=== PATIENT | female | born 1960 | race Caucasian/White ===

== ENCOUNTER 2017-09-30 14:49 | Inpatient (IN) ==
[2017-09-30] MEDS ORDERED: Hydrocortisone Sodium Succ 100 MG/2 ML VIAL IVP ONE (14:54)
[2017-09-30] MEDS ORDERED: 0.9 % Sodium Chloride 1,000 ML IVC ONE ×3 (14:54→17:32)
--- NOTE | 2017-09-30 14:59 | Emergency Department Note ---
Disposition Clinical Impression: Acute adrenal crisis, History of [place]'s disease, Hyponatremia, Hyperkalemia , Leukocytosis, UTI (urinary tract infection) Disposition: Admitted As Inpatient Condition: Critical General Adult HPI - General Stated complaint: NVD Time Seen by Provider: 09/30/17 14:53 - Related Data Home Medications Medication Instructions Recorded Confirmed No Known Home Drugs 09/30/17 09/30/17 Allergies Allergy/AdvReac Type Severity Reaction Status Date / Time morphine AdvReac Rash Verified 09/30/17 17:53 Course Vital Signs Temperature 98.3 F 09/30/17 14:52 Pulse Rate 103 09/30/17 14:52 Respiratory Rate 18 09/30/17 14:52 Blood Pressure 82/52 09/30/17 14:52 O2 Sat by Pulse Oximetry 100 09/30/17 14:52 Temperature 97.6 F 10/04/17 04:38 Pulse Rate 86 10/04/17 04:38 Respiratory Rate 14 10/04/17 04:38 Blood Pressure 120/69 10/04/17 04:38 O2 Sat by Pulse Oximetry 98 10/04/17 04:38 Oxygen Delivery Oxygen Delivery Room Air Medical Decision Making - Lab Data Result diagrams: 10/04/17 03:47 10/04/17 03:47 Lab Results 09/30/17 09/30/17 09/30/17 Range/Units 15:00 15:18 16:02 WBC 19.1 H (4.3-11.1) K/mcL RBC 4.80 (3.82-4.97) M/mcL Hgb 13.6 (11.5-15.4) g/dL Hct 40.4 (35.3-44.9) % MCV 84.2 (83.0-100.0) fL MCH 28.3 (28.0-33.3) pg MCHC 33.7 (31.6-35.5) g/dL RDW 13.1 (11.5-14.5) % Plt Count 290 (140-400) K/mcL MPV 9.9 (9.4-12.4) fL Immature Gran % 0.6 (0-4) % Seg Neutrophils % 81.7 % Lymphocytes % 9.1 % Monocytes % 6.8 % Eosinophils % 1.4 % Basophils % 0.4 % Neutrophils # 15.6 H (1.6-8.9) K/mcL Lymphocytes # 1.7 (0.6-4.6) K/mcL Monocytes # 1.3 (0.0-1.3) K/mcL Eosinophils # 0.3 (0.0-0.6) K/mcL Basophils # 0.1 (0.0-0.2) K/mcL Sodium (136-145) mEq/L Potassium (3.5-4.5) mEq/L Chloride (98-109) mEq/L Carbon Dioxide (19-29) mEq/L BUN (7-20) mg/dL Creatinine (0.57-1.11) mg/dL Est GFR ( Amer) (> 60) Est GFR (Non-Af Amer) (> 60) BUN/Creatinine Ratio (6-26) Glucose (70-99) mg/dL POC Glucose 98 H (58-89) Calculated Osmolality (280-300) Lactic Acid (0.5-2.2) mmol/L Calcium (8.6-10.8) mg/dL Magnesium (1.6-2.6) mg/dL Total Bilirubin (0.2-1.2) mg/dL AST (5-34) Units/L ALT (0-55) Units/L Alkaline Phosphatase (38-126) Units/L Creatine Kinase (29-168) Units/L Troponin I (0-0.03) ng/mL Serum Total Protein (6.0-8.3) g/dL Albumin (3.5-5.0) g/dL Globulin (2.4-3.5) g/dL Albumin/Globulin Ratio (1.1-2.2) TSH (0.350-4.840) mcIU/mL ACTH (6-58) pg/mL Urine Color Dark Yellow (Yellow) Urine Clarity Turbid A (Clear) Urine pH 6.5 (5.0-8.0) pH Units Ur Specific [place] 1.016 (1.010-1.025) Urine Protein 100 H (Neg-Trace) mg/dL Urine Glucose (UA) Normal (Normal) mg/dL Urine Ketones Trace H (Negative) mg/dL Urine Blood Small H (Negative) Urine Nitrite Negative (Negative) Urine Bilirubin Small H (Negative) Urine Urobilinogen Normal (Normal) mg/dL Ur Leukocyte Esterase Large H (Negative) Urine Microscopic RBC 5-15 H (0-3) per hpf Urine Microscopic WBC TNTC H (0-3) per hpf Ur Squamous Epith Cells Many H (None-Few) per lpf Urine Bacteria Many H (None-Few) per hpf Hyaline Casts Test Not Performed Urine Yeast Test Not Performed 09/30/17 09/30/17 09/30/17 Range/Units 16:02 16:02 16:02 WBC (4.3-11.1) K/mcL RBC (3.82-4.97) M/mcL Hgb (11.5-15.4) g/dL Hct (35.3-44.9) % MCV (83.0-100.0) fL MCH (28.0-33.3) pg MCHC (31.6-35.5) g/dL RDW (11.5-14.5) % Plt Count (140-400) K/mcL MPV (9.4-12.4) fL Immature Gran % (0-4) % Seg Neutrophils % % Lymphocytes % % Monocytes % % Eosinophils % % Basophils % % Neutrophils # (1.6-8.9) K/mcL Lymphocytes # (0.6-4.6) K/mcL Monocytes # (0.0-1.3) K/mcL Eosinophils # (0.0-0.6) K/mcL Basophils # (0.0-0.2) K/mcL Sodium 122 L (136-145) mEq/L Potassium 4.8 H (3.5-4.5) mEq/L Chloride 91 L (98-109) mEq/L Carbon Dioxide 18 L (19-29) mEq/L BUN 31 H (7-20) mg/dL Creatinine 1.69 H (0.57-1.11) mg/dL Est GFR ( Amer) 38 L (> 60) Est GFR (Non-Af Amer) 31 L (> 60) BUN/Creatinine Ratio 18 (6-26) Glucose 80 (70-99) mg/dL POC Glucose (58-89) Calculated Osmolality 260 L (280-300) Lactic Acid 4.0 H* (0.5-2.2) mmol/L Calcium 9.7 (8.6-10.8) mg/dL Magnesium 1.7 (1.6-2.6) mg/dL Total Bilirubin 0.7 (0.2-1.2) mg/dL AST 21 (5-34) Units/L ALT 16 (0-55) Units/L Alkaline Phosphatase 68 (38-126) Units/L Creatine Kinase 335 H (29-168) Units/L Troponin I 0.01 (0-0.03) ng/mL Serum Total Protein 6.1 (6.0-8.3) g/dL Albumin 2.8 L (3.5-5.0) g/dL Globulin 3.3 (2.4-3.5) g/dL Albumin/Globulin Ratio 0.8 L (1.1-2.2) TSH 8.668 H (0.350-4.840) mcIU/mL ACTH (6-58) pg/mL Urine Color (Yellow) Urine Clarity (Clear) Urine pH (5.0-8.0) pH Units Ur Specific [place] (1.010-1.025) Urine Protein (Neg-Trace) mg/dL Urine Glucose (UA) (Normal) mg/dL Urine Ketones (Negative) mg/dL Urine Blood (Negative) Urine Nitrite (Negative) Urine Bilirubin (Negative) Urine Urobilinogen (Normal) mg/dL Ur Leukocyte Esterase (Negative) Urine Microscopic RBC (0-3) per hpf Urine Microscopic WBC (0-3) per hpf Ur Squamous Epith Cells (None-Few) per lpf Urine Bacteria (None-Few) per hpf Hyaline Casts Urine Yeast 09/30/17 Range/Units 16:02 WBC (4.3-11.1) K/mcL RBC (3.82-4.97) M/mcL Hgb (11.5-15.4) g/dL Hct (35.3-44.9) % MCV (83.0-100.0) fL MCH (28.0-33.3) pg MCHC (31.6-35.5) g/dL RDW (11.5-14.5) % Plt Count (140-400) K/mcL MPV (9.4-12.4) fL Immature Gran % (0-4) % Seg Neutrophils % % Lymphocytes % % Monocytes % % Eosinophils % % Basophils % % Neutrophils # (1.6-8.9) K/mcL Lymphocytes # (0.6-4.6) K/mcL Monocytes # (0.0-1.3) K/mcL Eosinophils # (0.0-0.6) K/mcL Basophils # (0.0-0.2) K/mcL Sodium (136-145) mEq/L Potassium (3.5-4.5) mEq/L Chloride (98-109) mEq/L Carbon Dioxide (19-29) mEq/L BUN (7-20) mg/dL Creatinine (0.57-1.11) mg/dL Est GFR ( Amer) (> 60) Est GFR (Non-Af Amer) (> 60) BUN/Creatinine Ratio (6-26) Glucose (70-99) mg/dL POC Glucose (58-89) Calculated Osmolality (280-300) Lactic Acid (0.5-2.2) mmol/L Calcium (8.6-10.8) mg/dL Magnesium (1.6-2.6) mg/dL Total Bilirubin (0.2-1.2) mg/dL AST (5-34) Units/L ALT (0-55) Units/L Alkaline Phosphatase (38-126) Units/L Creatine Kinase (29-168) Units/L Troponin I (0-0.03) ng/mL Serum Total Protein (6.0-8.3) g/dL Albumin (3.5-5.0) g/dL Globulin (2.4-3.5) g/dL Albumin/Globulin Ratio (1.1-2.2) TSH (0.350-4.840) mcIU/mL ACTH 975 H (6-58) pg/mL Urine Color (Yellow) Urine Clarity (Clear) Urine pH (5.0-8.0) pH Units Ur Specific [place] (1.010-1.025) Urine Protein (Neg-Trace) mg/dL Urine Glucose (UA) (Normal) mg/dL Urine Ketones (Negative) mg/dL Urine Blood (Negative) Urine Nitrite (Negative) Urine Bilirubin (Negative) Urine Urobilinogen (Normal) mg/dL Ur Leukocyte Esterase (Negative) Urine Microscopic RBC (0-3) per hpf Urine Microscopic WBC (0-3) per hpf Ur Squamous Epith Cells (None-Few) per lpf Urine Bacteria (None-Few) per hpf Hyaline Casts Urine Yeast Critical Care Time Critical Care Time: Yes Total Critical Care Time: 60 Attestation: The high probability of a clinically significant, sudden or life threatening deterioration of the [] system(s) required my full and direct attention, intervention and personal management. The aggregate critical care time was [] minutes. This time is in addition to time spent performing reported procedures but includes the following: [] Data Review and interpretation [] Patient assessment and monitoring of vital signs [] Documentation [] Medication orders and management Attestation Statement - Attestation Attestation: I examined this patient and my medical decision-making was reviewed with the Resident Physician. I agree with the documented findings, disposition and treatment plan as described except to the extent set forth below. [id number] time provided Patient seen upon her arrival to the treatment area. She thinks that she is subjectively in an addisonian crisis. She states she has not been taking her hydrocortisone for the past 8 months. She is disheveled and unkempt. IV hydrocortisone ordered. Workup initiated 16:16: Nursing staff unable to establish proper peripheral IVs. Triple-lumen central venous catheter placed by the resident physician under my supervision 20:05: His blood pressure is improving with IV fluids. She is now much more alert and awake. She is admitted to the ICU
[2017-09-30 15:08] LABS: Bilirubin,Urine Small (Negative); Blood,Urine Small (Negative); Clarity,Urine Turbid (Clear); Color,Urine Dark Yellow (Yellow); Glucose,Urine (UA) Normal (Normal); Ketones,Urine Trace mg/dL (Negative); Leukocyte Esterase,Urine Large (Negative); Nitrite,Urine Negative (Negative); PH,Urine 6.5 pH Units (5.0-8.0); Protein,Urine 100 mg/dL (Neg-Trace); Specific Gravity,Urine 1.016 (1.010-1.025); Urobilinogen,Urine Normal (Normal)
[2017-09-30 15:10] LABS: Bacteria,Urine Many per hpf (None-Few); Squamous Epithelial Cell,Urine Many per lpf (None-Few); WBC,Urine TNTC per hpf (0-3)
[2017-09-30 16:18] LABS: Basophils # 0.1 K/mcL (0.0-0.2); Basophils % 0.4 %; Eosinophils # 0.3 K/mcL (0.0-0.6); Eosinophils % 1.4 %; Hematocrit 40.4 % (35.3-44.9); Hemoglobin 13.6 g/dL (11.5-15.4); Immature Granulocytes % 0.6 % (0-4); Lymphocytes # 1.7 K/mcL (0.6-4.6); Lymphocytes % 9.1 %; Mean Corpuscular HGB Conc 33.7 g/dL (31.6-35.5); Mean Corpuscular Hemoglobin 28.3 pg (28.0-33.3); Mean Corpuscular Volume 84.2 fL (83.0-100.0); Mean Platelet Volume 9.9 fL (9.4-12.4); Monocytes # 1.3 K/mcL (0.0-1.3); Monocytes % 6.8 %; Neutrophils # 15.6 K/mcL (1.6-8.9); Platelet Count 290 K/mcL (140-400); Red Cell Distribution Width 13.1 % (11.5-14.5); Segmented Neutrophils % 81.7 %
[2017-09-30 16:34] LABS: Albumin 2.8 g/dL (3.5-5.0); Albumin/Globulin Ratio 0.8 (1.1-2.2); Bilirubin,Total 0.7 mg/dL (0.2-1.2); Calcium 9.7 mg/dL (8.6-10.8); Globulin 3.3 g/dL (2.4-3.5); Magnesium 1.7 mg/dL (1.6-2.6); Potassium 4.8 mEq/L (3.5-4.5); Total Protein 6.1 g/dL (6.0-8.3)
[2017-09-30 17:07] LABS: Thyroid Stimulating Hormone 8.668 mcIU/mL (0.350-4.840)
--- NOTE | 2017-09-30 22:15 | Emergency Department Note ---
Disposition Clinical Impression: Acute adrenal crisis, History of [place]'s disease, Hyponatremia, Hyperkalemia Leukocytosis Qualifiers: Leukocytosis type: unspecified Qualified Code(s): D72.829 - Elevated white blood cell count, unspecified UTI (urinary tract infection) Qualifiers: Urinary tract infection type: site unspecified Hematuria presence: without hematuria Qualified Code(s): N39.0 - Urinary tract infection, site not specified Disposition: Admitted As Inpatient Condition: Critical Time of Disposition: 18:00 Nausea/Vomiting/Diarrhea HPI - General Chief complaint: ED Nausea/Vomiting/Diarrhea Stated complaint: NVD Time Seen by Provider: 09/30/17 14:53 Source: patient Limitations: altered mental status Nursing Notes Reviewed: Yes Vital Signs Reviewed: Yes - History of Present Illness HPI Narrative: This 57-year-old female resents with nausea vomiting and incontinence and also mental status. Patient has a history of [place]'s disease and has been untreated for the past 8 months since losing her insurance and PCP. Patient's states that she has been getting weaker and weaker each day for the past 2 weeks. - Related Data Home Medications Medication Instructions Recorded Confirmed No Known Home Drugs 09/30/17 09/30/17 Allergies Allergy/AdvReac Type Severity Reaction Status Date / Time morphine AdvReac Rash Verified 09/30/17 17:53 All systems ED: reviewed and negative except as stated. Review of Systems: As Per HPI Constitutional: Reports: weakness Eyes: Denies: vision change ENT ED: Denies: congestion Cardiovascular: Denies: chest pain Respiratory: Denies: cough Gastrointestinal: Reports: abdominal pain, nausea, vomiting, diarrhea Genitourinary: Denies: urgency, dysuria, frequency Musculoskeletal: Denies: back pain Integumentary: Denies: rash Neurological: Reports: headache, weakness Endocrine: Reports: fatigue Past Medical History - Past Medical History Attestation: Yes The following information was validated with the patient. Source: patient Medical history: Reports: cancer Surgical history: Reports: orthopedic, other Psychiatric history: Reports: no psych history - Social History Smoking Status: Former smoker Smokeless Tobacco Status: No (vapor) Alcohol use: Reports: rarely Drug use: Reports: none Physical Exam Vital Signs Temperature 98.3 F 09/30/17 14:52 Pulse Rate 103 09/30/17 14:52 Respiratory Rate 18 09/30/17 14:52 Blood Pressure 82/52 09/30/17 14:52 O2 Sat by Pulse Oximetry 100 09/30/17 14:52 Temperature 98.6 F 09/30/17 21:00 Pulse Rate 118 09/30/17 21:00 Respiratory Rate 20 09/30/17 21:00 Blood Pressure 80/62 09/30/17 21:00 O2 Sat by Pulse Oximetry 98 09/30/17 21:00 Oxygen Delivery Oxygen Delivery Room Air 57-year-old female who is alert and oriented 3 buttocks is extremely weak and fatigued and looks toxic. Patient is hypotensive and tachycardic. - General Limitations: altered mental status General appearance: alert, in no apparent distress - Head Head exam: atraumatic, normocephalic, normal inspection - Eye Eye exam: Present: normal appearance, PERRL, EOMI - ENT ENT exam: normal exam, normal oropharynx, mucous membranes dry - Neck Neck exam: Present: normal inspection, full ROM, trachea midline. Absent: tenderness - Chest Chest inspection: Present: normal inspection, symmetric chest wall rise - Respiratory Respiratory exam: Present: normal lung sounds bilaterally. Absent: respiratory distress, wheezes - Cardiovascular Cardiovascular exam: Present: normal rhythm, tachycardia - Abdominal Exam Abdominal exam: Present: soft, tenderness. Absent: distention, guarding, rebound, rigidity - Extremities Exam Extremities exam: Present: tenderness. Absent: normal inspection, full ROM, normal capillary refill Course Vital Signs Temperature 98.3 F 09/30/17 14:52 Pulse Rate 103 09/30/17 14:52 Respiratory Rate 18 09/30/17 14:52 Blood Pressure 82/52 09/30/17 14:52 O2 Sat by Pulse Oximetry 100 09/30/17 14:52 Temperature 97.9 F 10/06/17 08:11 Pulse Rate 78 10/06/17 08:11 Respiratory Rate 16 10/06/17 08:11 Blood Pressure 95/56 10/06/17 08:11 O2 Sat by Pulse Oximetry 96 10/06/17 08:11 Oxygen Delivery Oxygen Delivery Room Air Procedures - Central Line Placement Left IJ Central Line Inserted*: Yes Central Line Catheter Replacement*: Yes Central Line Insertion: emergent Consent Obtained: verbal consent, written consent Procedural Pause: verify patient name and date of , timeout performed per policy, carl and assess the site, assemble equipment and verify supplies, perform hand hygiene Patient Placed on Monitor/Pulse Ox: Yes During the Procedure: clinician is wearing sterile gloves, cap, mask,& gown during insertion, sterile field and sterile technique are maintained, patient's face is covered with drape or mask and wearing a cap, everyone in room is wearing a mask Central Line Prep: Chlorhexidine scrub, sterile drapes applied Prep the Procedure Site: apply chloraprep to the skin using a back and forth scrubbing motion, apply chloraprep for 30 seconds (upper body), 1-2 min ( femoral sites), allow prep to dry, drape the patient with a full body drape Local Anesthetic: lidocaine 1% Amount of anesthesia used (mL): 10 Ultrasound Used for Placement: Yes Central Line Lumen Inserted: triple Post Procedure: sutured in place, good blood return, all ports aspirated, flushed, capped, sterile dressing applied, guide wire removed and visualized Post Procedure X-Ray: tip of catheter in good position, no pneumothorax seen Patient Tolerated Procedure: well, no complications Complications: none Nausea/Vomiting/Diarrhea - [facility] Narrative Medical decision making narrative: Adrenal crisis secondary to [place]'s disease with medication noncompliance. Patient's labs show elevated white count, TSH elevated, hyperkalemia at 4.8, hyponatremia 122, acute kidney injury, UTI. Patient received 3 L IV normal saline. First 2 L did not budge patient's blood pressure. Patient received 100 mg of hydrocortisone along with a third liter which brought patient's blood pressure up to 110/80. Patient received central line and left IJ. Other sites were impossible to cannulate. Patient tolerated procedure well. Post chest x- ray was taken and showed no pneumothorax and proper placement of central line in the left IJ. Reexamination the patient patient looks completely perked up a lot more alert. And is now able to ask questions. Patient currently does not look toxic any longer. Patient accepts admission for further workup evaluation and treatment. Patient has been accepted for admission to the ICU. - Lab Data Lab results reviewed: Yes I reviewed the patient's lab results. Lab results narrative: Short CBC 09/30/17 Range/Units 16:02 WBC 19.1 H (4.3-11.1) K/mcL Hgb 13.6 (11.5-15.4) g/dL Hct 40.4 (35.3-44.9) % Plt Count 290 (140-400) K/mcL Neutrophils # 15.6 H (1.6-8.9) K/mcL BMP 09/30/17 Range/Units 16:02 Sodium 122 L (136-145) mEq/L Potassium 4.8 H (3.5-4.5) mEq/L Chloride 91 L (98-109) mEq/L Carbon Dioxide 18 L (19-29) mEq/L BUN 31 H (7-20) mg/dL Creatinine 1.69 H (0.57-1.11) mg/dL Glucose 80 (70-99) mg/dL Calcium 9.7 (8.6-10.8) mg/dL Cardiac Enzymes 09/30/17 Range/Units 16:02 Troponin I 0.01 (0-0.03) ng/mL Liver Function 09/30/17 Range/Units 16:02 Total Bilirubin 0.7 (0.2-1.2) mg/dL AST 21 (5-34) Units/L ALT 16 (0-55) Units/L Alkaline Phosphatase 68 (38-126) Units/L Albumin 2.8 L (3.5-5.0) g/dL Urine 09/30/17 Range/Units 15:00 Urine Color Dark Yellow (Yellow) Urine Clarity Turbid A (Clear) Urine pH 6.5 (5.0-8.0) pH Units Ur Specific [place] 1.016 (1.010-1.025) Urine Protein 100 H (Neg-Trace) mg/dL Urine Glucose (UA) Normal (Normal) mg/dL Result diagrams: 10/06/17 03:27 10/06/17 03:27 Lab Results 09/30/17 09/30/17 09/30/17 Range/Units 15:00 15:18 16:02 WBC 19.1 H (4.3-11.1) K/mcL RBC 4.80 (3.82-4.97) M/mcL Hgb 13.6 (11.5-15.4) g/dL Hct 40.4 (35.3-44.9) % MCV 84.2 (83.0-100.0) fL MCH 28.3 (28.0-33.3) pg MCHC 33.7 (31.6-35.5) g/dL RDW 13.1 (11.5-14.5) % Plt Count 290 (140-400) K/mcL MPV 9.9 (9.4-12.4) fL Immature Gran % 0.6 (0-4) % Seg Neutrophils % 81.7 % Lymphocytes % 9.1 % Monocytes % 6.8 % Eosinophils % 1.4 % Basophils % 0.4 % Neutrophils # 15.6 H (1.6-8.9) K/mcL Lymphocytes # 1.7 (0.6-4.6) K/mcL Monocytes # 1.3 (0.0-1.3) K/mcL Eosinophils # 0.3 (0.0-0.6) K/mcL Basophils # 0.1 (0.0-0.2) K/mcL Sodium (136-145) mEq/L Potassium (3.5-4.5) mEq/L Chloride (98-109) mEq/L Carbon Dioxide (19-29) mEq/L BUN (7-20) mg/dL Creatinine (0.57-1.11) mg/dL Est GFR ( Amer) (> 60) Est GFR (Non-Af Amer) (> 60) BUN/Creatinine Ratio (6-26) Glucose (70-99) mg/dL POC Glucose 98 H (58-89) Calculated Osmolality (280-300) Lactic Acid (0.5-2.2) mmol/L Calcium (8.6-10.8) mg/dL Magnesium (1.6-2.6) mg/dL Total Bilirubin (0.2-1.2) mg/dL AST (5-34) Units/L ALT (0-55) Units/L Alkaline Phosphatase (38-126) Units/L Creatine Kinase (29-168) Units/L Troponin I (0-0.03) ng/mL Serum Total Protein (6.0-8.3) g/dL Albumin (3.5-5.0) g/dL Globulin (2.4-3.5) g/dL Albumin/Globulin Ratio (1.1-2.2) Renin Activity ng/mL/hr TSH (0.350-4.840) mcIU/mL ACTH (6-58) pg/mL Urine Color Dark Yellow (Yellow) Urine Clarity Turbid A (Clear) Urine pH 6.5 (5.0-8.0) pH Units Ur Specific [place] 1.016 (1.010-1.025) Urine Protein 100 H (Neg-Trace) mg/dL Urine Glucose (UA) Normal (Normal) mg/dL Urine Ketones Trace H (Negative) mg/dL Urine Blood Small H (Negative) Urine Nitrite Negative (Negative) Urine Bilirubin Small H (Negative) Urine Urobilinogen Normal (Normal) mg/dL Ur Leukocyte Esterase Large H (Negative) Urine Microscopic RBC 5-15 H (0-3) per hpf Urine Microscopic WBC TNTC H (0-3) per hpf Ur Squamous Epith Cells Many H (None-Few) per lpf Urine Bacteria Many H (None-Few) per hpf Hyaline Casts Test Not Performed Urine Yeast Test Not Performed 09/30/17 09/30/17 09/30/17 Range/Units 16:02 16:02 16:02 WBC (4.3-11.1) K/mcL RBC (3.82-4.97) M/mcL Hgb (11.5-15.4) g/dL Hct (35.3-44.9) % MCV (83.0-100.0) fL MCH (28.0-33.3) pg MCHC (31.6-35.5) g/dL RDW (11.5-14.5) % Plt Count (140-400) K/mcL MPV (9.4-12.4) fL Immature Gran % (0-4) % Seg Neutrophils % % Lymphocytes % % Monocytes % % Eosinophils % % Basophils % % Neutrophils # (1.6-8.9) K/mcL Lymphocytes # (0.6-4.6) K/mcL Monocytes # (0.0-1.3) K/mcL Eosinophils # (0.0-0.6) K/mcL Basophils # (0.0-0.2) K/mcL Sodium 122 L (136-145) mEq/L Potassium 4.8 H (3.5-4.5) mEq/L Chloride 91 L (98-109) mEq/L Carbon Dioxide 18 L (19-29) mEq/L BUN 31 H (7-20) mg/dL Creatinine 1.69 H (0.57-1.11) mg/dL Est GFR ( Amer) 38 L (> 60) Est GFR (Non-Af Amer) 31 L (> 60) BUN/Creatinine Ratio 18 (6-26) Glucose 80 (70-99) mg/dL POC Glucose (58-89) Calculated Osmolality 260 L (280-300) Lactic Acid 4.0 H* (0.5-2.2) mmol/L Calcium 9.7 (8.6-10.8) mg/dL Magnesium 1.7 (1.6-2.6) mg/dL Total Bilirubin 0.7 (0.2-1.2) mg/dL AST 21 (5-34) Units/L ALT 16 (0-55) Units/L Alkaline Phosphatase 68 (38-126) Units/L Creatine Kinase 335 H (29-168) Units/L Troponin I 0.01 (0-0.03) ng/mL Serum Total Protein 6.1 (6.0-8.3) g/dL Albumin 2.8 L (3.5-5.0) g/dL Globulin 3.3 (2.4-3.5) g/dL Albumin/Globulin Ratio 0.8 L (1.1-2.2) Renin Activity ng/mL/hr TSH 8.668 H (0.350-4.840) mcIU/mL ACTH (6-58) pg/mL Urine Color (Yellow) Urine Clarity (Clear) Urine pH (5.0-8.0) pH Units Ur Specific [place] (1.010-1.025) Urine Protein (Neg-Trace) mg/dL Urine Glucose (UA) (Normal) mg/dL Urine Ketones (Negative) mg/dL Urine Blood (Negative) Urine Nitrite (Negative) Urine Bilirubin (Negative) Urine Urobilinogen (Normal) mg/dL Ur Leukocyte Esterase (Negative) Urine Microscopic RBC (0-3) per hpf Urine Microscopic WBC (0-3) per hpf Ur Squamous Epith Cells (None-Few) per lpf Urine Bacteria (None-Few) per hpf Hyaline Casts Urine Yeast 09/30/17 Range/Units 16:02 WBC (4.3-11.1) K/mcL RBC (3.82-4.97) M/mcL Hgb (11.5-15.4) g/dL Hct (35.3-44.9) % MCV (83.0-100.0) fL MCH (28.0-33.3) pg MCHC (31.6-35.5) g/dL RDW (11.5-14.5) % Plt Count (140-400) K/mcL MPV (9.4-12.4) fL Immature Gran % (0-4) % Seg Neutrophils % % Lymphocytes % % Monocytes % % Eosinophils % % Basophils % % Neutrophils # (1.6-8.9) K/mcL Lymphocytes # (0.6-4.6) K/mcL Monocytes # (0.0-1.3) K/mcL Eosinophils # (0.0-0.6) K/mcL Basophils # (0.0-0.2) K/mcL Sodium (136-145) mEq/L Potassium (3.5-4.5) mEq/L Chloride (98-109) mEq/L Carbon Dioxide (19-29) mEq/L BUN (7-20) mg/dL Creatinine (0.57-1.11) mg/dL Est GFR ( Amer) (> 60) Est GFR (Non-Af Amer) (> 60) BUN/Creatinine Ratio (6-26) Glucose (70-99) mg/dL POC Glucose (58-89) Calculated Osmolality (280-300) Lactic Acid (0.5-2.2) mmol/L Calcium (8.6-10.8) mg/dL Magnesium (1.6-2.6) mg/dL Total Bilirubin (0.2-1.2) mg/dL AST (5-34) Units/L ALT (0-55) Units/L Alkaline Phosphatase (38-126) Units/L Creatine Kinase (29-168) Units/L Troponin I (0-0.03) ng/mL Serum Total Protein (6.0-8.3) g/dL Albumin (3.5-5.0) g/dL Globulin (2.4-3.5) g/dL Albumin/Globulin Ratio (1.1-2.2) Renin Activity 191.5 ng/mL/hr TSH (0.350-4.840) mcIU/mL ACTH 975 H (6-58) pg/mL Urine Color (Yellow) Urine Clarity (Clear) Urine pH (5.0-8.0) pH Units Ur Specific [place] (1.010-1.025) Urine Protein (Neg-Trace) mg/dL Urine Glucose (UA) (Normal) mg/dL Urine Ketones (Negative) mg/dL Urine Blood (Negative) Urine Nitrite (Negative) Urine Bilirubin (Negative) Urine Urobilinogen (Normal) mg/dL Ur Leukocyte Esterase (Negative) Urine Microscopic RBC (0-3) per hpf Urine Microscopic WBC (0-3) per hpf Ur Squamous Epith Cells (None-Few) per lpf Urine Bacteria (None-Few) per hpf Hyaline Casts Urine Yeast - Radiology Data Radiology results reviewed: Yes I reviewed the patient's radiology results. Chest X-Ray 09/30/17 14:53 IMPRESSION: No acute findings. Left IJ catheter with tip projecting the region of the mid to lower SVC. D/ / Monae Araiza MD / Monae Araiza MD Interpreting Provider: Monae Araiza MD
[2017-09-30] MEDS ORDERED: Ondansetron ODT 4 MG TAB.RAPDIS SL PRN (22:37)
[2017-09-30] MEDS ORDERED: Naloxone 0.4 MG/ML INJ IVP PRN (22:37)
[2017-09-30] MEDS ORDERED: Temazepam 15 MG CAPSULE PO PRN (22:44)
--- NOTE | 2017-10-01 00:03 | Internal Med History&Physical ---
<Vera Davies - Last Filed: 09/30/17 23:46> Date of Encounter: 10/01/17 Time of Encounter: 22:00 Assessment and Plan (1) Sepsis Current visit: Yes Status: Acute (2) UTI (urinary tract infection) Current visit: Yes Status: Acute Qualifiers: Urinary tract infection type: site unspecified Hematuria presence: with hematuria Qualified Code(s): N39.0 - Urinary tract infection, site not specified; R31.9 - Hematuria, unspecified; R31.9 - Hematuria, unspecified (3) Acute adrenal crisis Current visit: Yes Status: Acute (4) Bilateral knee pain Current visit: Yes Status: Acute (5) Hyponatremia Current visit: Yes Status: Acute (6) History of Alden's disease Current visit: Yes Status: Acute (7) DVT prophylaxis Current visit: Yes Status: Acute Internal Medicine - H&P: HPI Chief complaint: bilateral knee pain Admitted From: Emergency Dept Plans for Post Hospital Care: Transfer Inp Rehab Fac History of present illness: Ms. Mendoza is a 57 year old female with past medical history of Martin's disease and Althea's who presented to the ED complaining of bilateral knee pain. She stated that she has been immobile for the past 3 months. 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 She stated that Past Med Surg Social Fam HX - Past Medical History Medical history: cancer Psychiatric history: no psych history - Past Surgical History Surgical History: orthopedic, other - Social History Smoking Status: Former smoker Smokeless Tobacco Status: No (vapor) Alcohol use: rarely Drug use: none Internal Medicine - H&P: Meds No Known Home Drugs 09/30/17 [History] 3 Allergy/AdvReac Type Severity Reaction Status Date / Time morphine AdvReac Rash Verified 09/30/17 17:53 All Systems PM: A 10-system review of systems was performed and is negative for pertinent findings except as documented above in the HPI. - Constitutional Constitutional: no chills, no fever(s) - EENT Eyes: no change in vision - Cardiovascular Cardiovascular ROS IM: no chest pain, no palpitations, no syncope - Respiratory Respiratory: no cough, no dyspnea, no wheezing - Gastrointestinal Gastrointestinal: nausea, vomiting, no abdominal pain, no cramping, no diarrhea , no hematochezia - Genitourinary Genitourinary: no dysuria, no hematuria - Constitutional Vitals: Temp Pulse Resp BP Pulse Ox 98.6 F 105 16 87/50 98 09/30/17 21:00 09/30/17 22:00 09/30/17 22:00 09/30/17 22:00 09/30/17 22:00 General appearance: Present: A&O X 3, no acute distress - Head Head exam: Present: atraumatic, normocephalic - Eye Eye exam: Present: conjunctival injection - ENT ENT exam: Present: mucous membranes dry - Neck Neck exam general surgery: Present: supple. Absent: tenderness - Respiratory Respiratory exam: Present: CTAB. Absent: rales, wheezes - Cardiovascular Cardiovascular exam: Present: RRR, +S1, +S2. Absent: clicks - GI/Abdominal GI/Abdominal exam: Present: normal bowel sounds, soft. Absent: tenderness - Extremities Exam Extremities exam: Absent: calf tenderness, full ROM, joint swelling - Expanded Lower Extremities Exam Lower Leg exam: Absent: full ROM, swelling - Psychiatric Psychiatric exam: Present: normal affect, normal mood - Skin Skin exam: Present: erythema (on buttocks. left popliteal ), excoriation ( popliteal region of left leg) Internal Med - H&P Results - Labs CBC & Chem 7: 10/01/17 02:50 10/01/17 02:50 - Impressions ITS Impressions Knee X-Ray 09/30/17 22:42 IMPRESSION: No acute osseous abnormality of the bilateral knees. Osteopenia. Evaluation is limited by apparent flexion contractures bilaterally. D/ / Vj Abarca MD / Vj Abarca MD Interpreting Provider: Vj Abarca MD <Megha Parson - Last Filed: 10/01/17 04:55> Date of Encounter: 09/30/17 Internal Medicine - H&P: HPI History of present illness: Ms. Mendoza is a 57 year old female All Systems PM: A 10-system review of systems was performed and is negative for pertinent findings except as documented above in the HPI. - Constitutional Vitals: Temp Pulse Resp BP Pulse Ox 98.6 F 98 10 90/61 96 09/30/17 21:00 10/01/17 04:00 10/01/17 04:00 10/01/17 04:00 10/01/17 04:00 Internal Med - H&P Results - Labs CBC & Chem 7: 10/01/17 02:50 10/01/17 02:50 Labs: Short CBC 10/01/17 Range/Units 02:50 WBC 20.9 H (4.3-11.1) K/mcL Hgb 11.4 L D (11.5-15.4) g/dL Hct 33.3 L (35.3-44.9) % Plt Count 278 (140-400) K/mcL Neutrophils # 19.3 H (1.6-8.9) K/mcL BMP 10/01/17 02:50 Sodium 131 L D Potassium 4.2 Chloride 105 Carbon Dioxide 16 L BUN 18 D Creatinine 0.65 D Glucose 99 Calcium 8.4 L - Impressions ITS Impressions Knee X-Ray 09/30/17 22:42 IMPRESSION: No acute osseous abnormality of the bilateral knees. Osteopenia. Evaluation is limited by apparent flexion contractures bilaterally. D/ / Vj Abarca MD / Vj Abarca MD Interpreting Provider: Vj Abarca MD - Attending Attestation please see my dictated note
[2017-10-01] MEDS: cefTRIAXone 1,000 MG in Water for inj. (sterile) 10 ML IVP SCH ×2 (00:23→08:43)
[2017-10-01] MEDS: 0.9 % Sodium Chloride 1,000 ML IVC SCH ×2 (00:26→04:37)
[2017-10-01] MEDS: Nystatin Cream 15 GM TUBE TP SCH ×4 (00:27→20:41)
[2017-10-01] MEDS ORDERED: Acetaminophen 325 MG TABLET PO PRN (02:58)
--- NOTE | 2017-10-01 03:04 | Event Note ---
Date of Encounter: 10/01/17 Time of Encounter: 03:00 Patient was seen along with the resident and examined. 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 Several months back she was fired from the practice and since then she has not been taking her medication. The main reason she came in today is because of her bilateral knee pain which is incapacitating her. Her knees are not flexed position and she is very resistant to further extend those. I noted that she has some fungal infection and ulceration in the popliteal area of her left leg lower extremities indicating that to probably this is going on for a longer period of time. At this time we are requesting records from her physician in [facility] but in the meantime we have noticed that she has UTI sepsis and start her on IV Rocephin and IV fluids. Random cortisol will be obtained after which she can be started on IV hydrocortisone. Her TSH is slightly elevated and she can be given a low-dose of levothyroxine. I will hold further workup until we review her records to see if there is any need to do any further testing. Knee x-rays and orthopedic consultation will also be obtained. Overall patient seems quite emotional and upset and might need a psych consult.
[2017-10-01 03:08] LABS: Basophils % 0.1 %; Hematocrit 33.3 % (35.3-44.9); Immature Granulocytes % 0.5 % (0-4); Lymphocytes # 0.6 K/mcL (0.6-4.6); Lymphocytes % 2.8 %; Mean Corpuscular HGB Conc 34.2 g/dL (31.6-35.5); Mean Corpuscular Hemoglobin 28.2 pg (28.0-33.3); Mean Corpuscular Volume 82.4 fL (83.0-100.0); Mean Platelet Volume 9.8 fL (9.4-12.4); Monocytes # 0.9 K/mcL (0.0-1.3); Monocytes % 4.1 %; Neutrophils # 19.3 K/mcL (1.6-8.9); Platelet Count 278 K/mcL (140-400); Red Blood Count 4.04 M/mcL (3.82-4.97); Red Cell Distribution Width 13.1 % (11.5-14.5); Segmented Neutrophils % 92.5 %
[2017-10-01 03:15] LABS: Hemoglobin 11.4 g/dL (11.5-15.4)
[2017-10-01 03:17] LABS: BUN/Creatinine Ratio 28 (6-26); Calcium 8.4 mg/dL (8.6-10.8); Carbon Dioxide 16 mEq/L (19-29); Chloride 105 mEq/L (98-109); Glucose 99 mg/dL (70-99); Osmolality,Calculated 274 (280-300); Potassium 4.2 mEq/L (3.5-4.5); eGFR For African Americans > 60 (> 60); eGFR For Non-African Americans > 60 (> 60)
[2017-10-01 03:23] LABS: Blood Urea Nitrogen 18 mg/dL (7-20); Sodium 131 mEq/L (136-145)
[2017-10-01] MEDS ORDERED: *HR* Heparin 5,000 UNIT/ML VIAL SQ SCH (06:00)
[2017-10-01] MEDS: Levothyroxine 25 MCG TABLET PO SCH (06:03)
[2017-10-01] MEDS: Hydrocortisone Sodium Succ 100 MG/2 ML VIAL IVP SCH ×2 (08:43→15:42)
[2017-10-01] MEDS: Norepinephrine 4 MG in D5% in Water 250 ML IVC SCH (08:47)
--- NOTE | 2017-10-01 08:54 | Pulmonology Consult Note ---
<Jerzy Peralta - Last Filed: 10/01/17 10:38> Date of Encounter: 10/01/17 Time of Encounter: 08:00 Assessment and Plan (1) Severe sepsis Current Visit: Yes Status: Acute - 2 SIRS criteria (tachycardia and leukocytosis) with lactic acid 4.0 on admission. - Likely secondary to UTI. - Blood cultures and urine culture pending. - Improves as leukocytosis decreases and lactic acid normalized (0.9 on repeat). - Continue IV ceftriaxone (since 10/01). - Hold NS for now given the [id number] correction for hyponatremia. Will consider using IV fluid like free water/D5 instead. - Start Levophed for pressure support and the goal is have MAP 65 or higher. - Continue close monitoring in ICU. (2) Acute adrenal crisis Current Visit: Yes Status: Acute - Known history of adrenal insufficiency and being off from steroid for 8 months per patient. - Likely contributes to patient's persistent hypotension along with hyponatremia and hyperkalemia. - Continue IV hydrocortisone. 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 - Continue to monitor closely in ICU. (3) Hypotension Current Visit: Yes Status: Acute - Persistent hypotension even after 4L of NS. - Likely secondary to adrenal crisis. Severe sepsis on admission may also contribute in some degree. - Will obtain echocardiogram to evaluate for heart function. - Continue IV hydrocortisone. - Start Levophed for pressure support and the goal is have MAP 65 or higher. - Continue close monitoring. Qualifiers: Hypotension type: other hypotension type Qualified Code(s): I95.89 - Other hypotension (4) UTI (urinary tract infection) Current Visit: Yes Status: Acute - Reported worsening urinary incontinence with large amount of leukocyte esterase and many bacteria on UA. - Urine culture pending. - Continue IV ceftriaxone (since 10/01). Qualifiers: Urinary tract infection type: site unspecified Hematuria presence: without hematuria Qualified Code(s): N39.0 - Urinary tract infection, site not specified (5) Hypothyroidism (acquired) Current Visit: Yes Status: Chronic - History of Althea's thyroiditis in the past - Patient reports being off from Synthroid for 8 months. - Elevated TSH 8.668 on admission with free T4 1.34 - Continue low dose Synthroid. (6) Hyponatremia Current Visit: Yes Status: Acute - Na 122 on admission. - Likely related to patient's adrenal insufficiency/crisis. - Improves as Na 131 this morning, which is corrected faster than anticipated. - Will discontinue normal saline and repeat Na again. Consider adding free water or D5 to lower Na if needed. - Continue close monitoring. (7) Hyperkalemia Current Visit: Yes Status: Acute - K 4.8 on admission. - Likely related to patient's adrenal insufficiency/crisis. - Improves as K 4.2 today. - Continue to monitor closely. (8) Bilateral knee pain Current Visit: Yes Status: Chronic - Per patient, bilateral knee pain and unable to extend the knee for 6 months resulting in inability to ambulate for past 3 months. - Bilateral knee X-ray found osteopenia but no acute osseous abnormality of the bilateral knees. - Orthopedic surgery had been consulted by admitting physician. Appreciate orthopedic input. Qualifiers: Chronicity: chronic Qualified Code(s): M25.561 - Pain in right knee; M25.562 - Pain in left knee; M25.562 - Pain in left knee; G89.29 - Other chronic pain; G89.29 - Other chronic pain (9) DVT prophylaxis Current Visit: Yes Status: Acute - Continue SQ heparin. GI prophylaxis: Pepcid. History of Present Illness Consult date: 10/01/17 Requesting physician: Cheko Max Reason for consult: other (Persistent hypotension) Chief complaint: Bilateral knee pain History of present illness: Ms. Mendoza is a 57 yo female with PMH of adrenal insufficiency and Althea thyroiditis who presented to to [facility] ED for bilateral knee pain. Patient was noted to be tachycardic and hypotensive along with WBC 20.9 and lactic acid 4.0. Patient was admitted to ICU on 09/30/17 for severe sepsis likely secondary to UTI. Patient was started on IV ceftriaxone. Patient also received 4L of NS along with IV hydrocortisone 100 mg but continued to be hypotensive. Critical care was consulted for further management including pressure support. Patient was seen and examined this morning. Patient's main complaint is her bilateral knee pain which had been going on for 6 months and made her unable to ambulate for 3 months. Patient states she has been lying on the couch all the time and did notice some erythema at her heel and butt. Patient also has chronic urinary incontinence but does notice worsening in past few days along with some nausea and vomiting. Patient denies fever, chills, dyspnea, cough, chest pain, abdominal pain, diarrhea, constipation, hematochezia, melena, hematuria, dysuria, easily bleeding. Patient reports being off from steroid and Synthroid for 8 months. Past Med Surg Social Fam HX - Past Medical History Medical history: cancer (bone cancer of left humorous), thyroid disease ( Althea), other (Adrenal insufficiency) Psychiatric history: no psych history - Past Surgical History Surgical History: orthopedic, other (left humorous) - Social History Smoking Status: Former smoker Smokeless Tobacco Status: No (vapor) Alcohol use: rarely Drug use: none - Family History Father Hx Family Cardiac Disorders: Yes ([place]) Mother Hx Family Cancer: Yes (breast and lung cancers) Brother Hx Family Cardiac Disorders: Yes ([place]) Medications and Allergies No Known Home Drugs 09/30/17 [History] 3 Allergy/AdvReac Type Severity Reaction Status Date / Time morphine AdvReac Rash Verified 09/30/17 17:53 All Systems: A 10-system review of systems was performed and is negative for pertinent findings except as documented above in the HPI. Physical Examination Vital Signs: Vital Signs, Last 4 Hours Temp Pulse Resp BP Pulse Ox 10/01/17 07:22 98.5 F 10/01/17 06:00 100 14 77/54 98 10/01/17 05:06 98.5 F 10/01/17 05:00 98.5 F 100 14 101/58 98 General appearance: no acute distress, alert Eyes: nonicteric ENT: oropharynx dry Neck: supple Effort: normal Inspection: normal Auscultation: bilateral: clear Cardiovascular: regular rate and rhythm Gastrointestinal: normoactive bowel sounds, soft, non-tender Integumentary: erythema (butt and heel) Extremities: no cyanosis, no edema Musculoskeletal: other (Bilateral knee in flex position. ) normal mental status, non-focal exam Results - Laboratory Findings CBC and BMP: 10/01/17 02:50 10/01/17 02:50 Abnormal lab findings: Abnormal lab results WBC 20.9 K/mcL (4.3-11.1) H 10/01/17 02:50 Hgb 11.4 g/dL (11.5-15.4) L D 10/01/17 02:50 Hct 33.3 % (35.3-44.9) L 10/01/17 02:50 MCV 82.4 fL (83.0-100.0) L 10/01/17 02:50 Neutrophils # 19.3 K/mcL (1.6-8.9) H 10/01/17 02:50 ESR 39 mm/hr (0-15) H 10/01/17 05:55 Sodium 131 mEq/L (136-145) L D 10/01/17 02:50 Carbon Dioxide 16 mEq/L (19-29) L 10/01/17 02:50 BUN/Creatinine Ratio 28 (6-26) H 10/01/17 02:50 Calculated Osmolality 274 (280-300) L 10/01/17 02:50 Calcium 8.4 mg/dL (8.6-10.8) L 10/01/17 02:50 Creatine Kinase 211 Units/L (29-168) H 10/01/17 02:50 Albumin 2.8 g/dL (3.5-5.0) L 09/30/17 16:02 Albumin/Globulin Ratio 0.8 (1.1-2.2) L 09/30/17 16:02 TSH 8.668 mcIU/mL (0.350-4.840) H 09/30/17 16:02 Urine Clarity Turbid (Clear) A 09/30/17 15:00 Urine Protein 100 mg/dL (Neg-Trace) H 09/30/17 15:00 Urine Ketones Trace mg/dL (Negative) H 09/30/17 15:00 Urine Blood Small (Negative) H 09/30/17 15:00 Urine Bilirubin Small (Negative) H 09/30/17 15:00 Ur Leukocyte Esterase Large (Negative) H 09/30/17 15:00 Urine Microscopic RBC 5-15 per hpf (0-3) H 09/30/17 15:00 Urine Microscopic WBC TNTC per hpf (0-3) H 09/30/17 15:00 Ur Squamous Epith Cells Many per lpf (None-Few) H 09/30/17 15:00 Urine Bacteria Many per hpf (None-Few) H 09/30/17 15:00 - Diagnostic Findings Chest x-ray: report reviewed, image reviewed - Clinical Findings Intake & Output: Intake & Output 09/30/17 10/01/1710/01/17 23:59 07:59 15:59 Intake Total 3000 / 3000 1730 / 1730 1000 / 1000 Output Total 750 / 750 Balance 3000 / 3000 980 / 980 1000 / 1000 Weight 67.9 kg Consult Discharge Plan - Plan Referrals: NONE,PCP [Primary Care Provider] - <Layo Cuenca - Last Filed: 10/01/17 15:38> Date of Encounter: 10/01/17 All Systems: A 10-system review of systems was performed and is negative for pertinent findings except as documented above in the HPI. Physical Examination Vital Signs: Vital Signs, Last 4 Hours Temp Pulse Resp BP Pulse Ox 10/01/17 14:42 98 10/01/17 14:00 97 18 96/52 99 10/01/17 13:00 99 20 120/71 100 10/01/17 12:00 98 18 87/72 96 10/01/17 11:47 98.3 F Results - Laboratory Findings CBC and BMP: 10/01/17 02:50 10/01/17 02:50 Abnormal lab findings: Abnormal lab results WBC 20.9 K/mcL (4.3-11.1) H 10/01/17 02:50 Hgb 11.4 g/dL (11.5-15.4) L D 10/01/17 02:50 Hct 33.3 % (35.3-44.9) L 10/01/17 02:50 MCV 82.4 fL (83.0-100.0) L 10/01/17 02:50 Neutrophils # 19.3 K/mcL (1.6-8.9) H 10/01/17 02:50 ESR 39 mm/hr (0-15) H 10/01/17 05:55 Sodium 131 mEq/L (136-145) L D 10/01/17 02:50 Carbon Dioxide 16 mEq/L (19-29) L 10/01/17 02:50 BUN/Creatinine Ratio 28 (6-26) H 10/01/17 02:50 Calculated Osmolality 274 (280-300) L 10/01/17 02:50 Calcium 8.4 mg/dL (8.6-10.8) L 10/01/17 02:50 Creatine Kinase 211 Units/L (29-168) H 10/01/17 02:50 Albumin 2.8 g/dL (3.5-5.0) L 09/30/17 16:02 Albumin/Globulin Ratio 0.8 (1.1-2.2) L 09/30/17 16:02 TSH 8.668 mcIU/mL (0.350-4.840) H 09/30/17 16:02 Urine Clarity Turbid (Clear) A 09/30/17 15:00 Urine Protein 100 mg/dL (Neg-Trace) H 09/30/17 15:00 Urine Ketones Trace mg/dL (Negative) H 09/30/17 15:00 Urine Blood Small (Negative) H 09/30/17 15:00 Urine Bilirubin Small (Negative) H 09/30/17 15:00 Ur Leukocyte Esterase Large (Negative) H 09/30/17 15:00 Urine Microscopic RBC 5-15 per hpf (0-3) H 09/30/17 15:00 Urine Microscopic WBC TNTC per hpf (0-3) H 09/30/17 15:00 Ur Squamous Epith Cells Many per lpf (None-Few) H 09/30/17 15:00 Urine Bacteria Many per hpf (None-Few) H 09/30/17 15:00 - Clinical Findings Intake & Output: Intake & Output 09/30/17 10/01/17 10/01/17 23:59 07:59 15:59 Intake Total 3000 / 3000 1730 / 1730 2178 / 2178 Output Total 750 / 750 975 / 975 Balance 3000 / 3000 980 / 980 1203 / 1203 Weight 67.9 kg - Attending Attestation I examined this patient and my medical decision-making was reviewed with the Resident Physician. I agree with the documented findings, disposition and treatment plan as described except to the extent set forth below. We independently had [id number] contact with the patient Patient seen and examined at bedside Labs, radiology, chart personally reviewed. Management was reviewed during multidisciplinary critical care rounds. Impression: 1. Chronic Adrenal Insuff with Adrenal Crisis 2. Hypovolemia 3. Hypotension without shock physiology 4. Possible Sepsis 5. Chronic Knee Arthropathy 6. Hypothyroidism 7. Possible Myopathy 8. Deconditioning Recs: -Cont Hydrocortisone with plan to taper daily -SHe has recieved fluid boluses encourage PO supplement with infusion of crystalloid as needed -Cont ABx with plan to stop at 48hours if no clear source of infection -Possible Ortho consult cont pain control - Cont Levothyroxine - Outpatient Neurology consult - PT/OT eval. Stable for transfer to [facility]/tele for ongoing care.
[2017-10-01] MEDS: Famotidine 20 MG TABLET PO SCH ×2 (11:30→20:41)
[2017-10-01] MEDS: *HR* Heparin 5,000 UNIT/ML VIAL SQ SCH (17:25)
--- NOTE | 2017-10-01 19:03 | Orthopedic Consult Note ---
Date of Encounter: 10/01/17 Time of Encounter: 19:01 Assessment and Plan (1) Bilateral knee pain Current Visit: Yes Status: Chronic I did discuss the diagnosis in detail with the patient. She is bilateral knee flexion contractures and chronic knee pain, the etiology of which is not entirely clear. I anticipate that she will need a prolonged course of therapy to work on knee motion as well as conditioning. No acute intervention is needed here in the hospital. No orthopedic restrictions. Follow up in the office with sports medicine at [facility] for further workup on an outpatient basis. Qualifiers: Chronicity: chronic Qualified Code(s): M25.561 - Pain in right knee; M25.562 - Pain in left knee; M25.562 - Pain in left knee; G89.29 - Other chronic pain; G89.29 - Other chronic pain History of Present Illness HPI: Ms. Mendoza is a 57 year old female who is admitted to the hospitalist for sepsis secondary to urinary tract infection. She had originally presented for bilateral knee pain and difficulties walking which has been chronic. She indicates that it is been 3 months since she is last unable to walk due to chronic pain regarding the knees and progressive contractures. She says she has seen an orthopedist in [place] who said that it was related to her Rhome' s disease. She followed up with an orthopedic doctor in [place] but the patient says she was not aware of what his recommendations were. She says that she has had injections in the past over the course of years have temporarily given her relief but nothing recently. She has not been able to walk for the last 3 months she says that the knee pain has been present for years and is worsening. No numbness or tingling to the bilateral feet. Pain is worse with movement of the knees and better with rest. No other associated signs or symptoms or modifying factors. Past Med Surg Social Fam HX - Past Medical History Medical history: cancer (bone cancer of left humorous), thyroid disease ( Althea), other (Adrenal insufficiency) Psychiatric history: no psych history - Past Surgical History Surgical History: orthopedic, other (left humorous) - Social History Smoking Status: Former smoker Smokeless Tobacco Status: No (vapor) Alcohol use: rarely Drug use: none - Family History Father Hx Family Cardiac Disorders: Yes ([place]) Mother Hx Family Cancer: Yes (breast and lung cancers) Brother Hx Family Cardiac Disorders: Yes ([place]) Medications and Allergies No Known Home Drugs 09/30/17 [History] 3 Allergy/AdvReac Type Severity Reaction Status Date / Time morphine AdvReac Rash Verified 09/30/17 17:53 All Systems Reviewed: A 10-system review of systems was performed and is negative for pertinent findings except as documented above in the HPI. Physical Exam - Constitutional Vitals: Temp Pulse Resp BP Pulse Ox 99.2 F 100 20 94/60 98 10/01/17 15:48 10/01/17 18:00 10/01/17 18:00 10/01/17 18:00 10/01/17 18:00 CONSTITUTIONAL -Vitals reviewed -The patient is well developed, well nourished, well groomed PSYCHIATRIC -Fully alert and oriented -Pleasant mood LEFT LOWER EXTREMITY The skin and soft tissue envelope are intact. Moderate maceration to the backs of the intertriginous Area of the Knee. Significant stiffness to the knee and I can only range it from 90 degrees to about 130 degrees with no significant pain at this range but pain worsens beyond these extremes. No significant pain with hip or ankle or toe motion. She can grossly dorsiflex and plantar flex ankle and toes and the foot is warm and well perfused. RIGHT LOWER EXTREMITY The skin and soft tissue envelope are intact. Moderate maceration to the backs of the intertriginous Area of the Knee. Significant stiffness to the knee and I can only range it from 90 degrees to about 130 degrees with no significant pain at this range but pain worsens beyond these extremes. No significant pain with hip or ankle or toe motion. She can grossly dorsiflex and plantar flex ankle and toes and the foot is warm and well perfused. Diagnostic Imaging: I did personally review and interpret x-rays of the bilateral knees which show significant flexion contractures without acute abnormality. Minimal arthritic change in the patellofemoral joints. Results - Labs Result Diagrams: 10/01/17 02:50 10/01/17 02:50 Labs: Abnormal lab results WBC 20.9 K/mcL (4.3-11.1) H 10/01/17 02:50 Hgb 11.4 g/dL (11.5-15.4) L D 10/01/17 02:50 Hct 33.3 % (35.3-44.9) L 10/01/17 02:50 MCV 82.4 fL (83.0-100.0) L 10/01/17 02:50 Neutrophils # 19.3 K/mcL (1.6-8.9) H 10/01/17 02:50 ESR 39 mm/hr (0-15) H 10/01/17 05:55 Sodium 131 mEq/L (136-145) L D 10/01/17 02:50 Carbon Dioxide 16 mEq/L (19-29) L 10/01/17 02:50 BUN/Creatinine Ratio 28 (6-26) H 10/01/17 02:50 Calculated Osmolality 274 (280-300) L 10/01/17 02:50 Calcium 8.4 mg/dL (8.6-10.8) L 10/01/17 02:50 Creatine Kinase 211 Units/L (29-168) H 10/01/17 02:50 Albumin 2.8 g/dL (3.5-5.0) L 09/30/17 16:02 Albumin/Globulin Ratio 0.8 (1.1-2.2) L 09/30/17 16:02 TSH 8.668 mcIU/mL (0.350-4.840) H 09/30/17 16:02 Urine Clarity Turbid (Clear) A 09/30/17 15:00 Urine Protein 100 mg/dL (Neg-Trace) H 09/30/17 15:00 Urine Ketones Trace mg/dL (Negative) H 09/30/17 15:00 Urine Blood Small (Negative) H 09/30/17 15:00 Urine Bilirubin Small (Negative) H 09/30/17 15:00 Ur Leukocyte Esterase Large (Negative) H 09/30/17 15:00 Urine Microscopic RBC 5-15 per hpf (0-3) H 09/30/17 15:00 Urine Microscopic WBC TNTC per hpf (0-3) H 09/30/17 15:00 Ur Squamous Epith Cells Many per lpf (None-Few) H 09/30/17 15:00 Urine Bacteria Many per hpf (None-Few) H 09/30/17 15:00 H & H 10/01/17 Range/Units 02:50 Hgb 11.4 L D (11.5-15.4) g/dL Hct 33.3 L (35.3-44.9) % All other labs normal. Consult Discharge Plan - Plan Referrals: NONE,PCP [Primary Care Provider] -
--- NOTE | 2017-10-01 19:17 | Electrocardiograph Report ---
[place] [id number] Test Date: 2017-09-30 Pat Name: Vale Mendoza Department: 103 Room: [facility] Gender: F [employer] Technician: ADELINA : 1960 Requested By: Ruben Cochran Order Number: [id number] Reading MD: Johnathan Cintron DO Measurements Intervals Coila Rate: 102 P: 71 NH: 117 QRS: 40 QRSD: 90 T: 62 QT: 338 QTc: 397 Interpretive Statements SINUS TACHYCARDIA POSSIBLE INFERIOR MYOCARDIAL INFARCTION [30 ms Q WAVE IN II/aVF], PROBABLY OLD WITH POSTERIOR EXTENSION [PROMINENT R WAVE IN V1 Electronically Signed On 10-01-2017 19:15:35 EST by Johnathan Cintron DO
[2017-10-02] MEDS: Hydrocortisone Sodium Succ 100 MG/2 ML VIAL IVP SCH ×3 (00:06→23:49)
[2017-10-02] MEDS ORDERED: 0.9 % Sodium Chloride 500 ML IVC ONE (03:43)
[2017-10-02 04:33] LABS: Hematocrit 28.7 % (35.3-44.9); Immature Granulocytes % 0.3 % (0-4); Lymphocytes # 0.6 K/mcL (0.6-4.6); Lymphocytes % 6.3 %; Mean Corpuscular HGB Conc 33.1 g/dL (31.6-35.5); Mean Corpuscular Hemoglobin 27.8 pg (28.0-33.3); Mean Corpuscular Volume 83.9 fL (83.0-100.0); Monocytes # 0.3 K/mcL (0.0-1.3); Monocytes % 3.4 %; Neutrophils # 8.3 K/mcL (1.6-8.9); Platelet Count 261 K/mcL (140-400); Red Blood Count 3.42 M/mcL (3.82-4.97); Red Cell Distribution Width 13.2 % (11.5-14.5)
[2017-10-02 04:34] LABS: Hemoglobin 9.5 g/dL (11.5-15.4)
[2017-10-02 04:42] LABS: BUN/Creatinine Ratio 18 (6-26); Blood Urea Nitrogen 9 mg/dL (7-20); Calcium 8.5 mg/dL (8.6-10.8); Carbon Dioxide 19 mEq/L (19-29); Chloride 111 mEq/L (98-109); Glucose 138 mg/dL (70-99); Magnesium 1.5 mg/dL (1.6-2.6); Osmolality,Calculated 287 (280-300); Phosphorous 1.3 mg/dL (2.3-4.7); eGFR For African Americans > 60 (> 60); eGFR For Non-African Americans > 60 (> 60)
[2017-10-02 04:43] LABS: Potassium 2.9 mEq/L (3.5-4.5); Sodium 138 mEq/L (136-145)
[2017-10-02] MEDS: Levothyroxine 25 MCG TABLET PO SCH (05:47)
[2017-10-02] MEDS: *HR* Heparin 5,000 UNIT/ML VIAL SQ SCH ×2 (05:47→17:20)
[2017-10-02] MEDS ORDERED: Potassium Chloride 40 MEQ/200 ML BAG IVPB PRN (05:59)
[2017-10-02] MEDS ORDERED: Potassium Phosphate 44 MEQ in 0.9 % Sodium Chloride 250 ML IVPB PRN (05:59)
[2017-10-02 06:32] LABS: VBG Ionized Calcium 1.38 mmol/L (1.15-1.35); VBG PH 7.34 pH Units (7.32-7.42)
[2017-10-02] MEDS ORDERED: Hydrocortisone Sodium Succ 100 MG/2 ML VIAL IVP SCH (07:06)
--- NOTE | 2017-10-02 08:10 | Pulmonology Progress Note ---
<JoellenNatanaelLayo W - Last Filed: 10/02/17 10:43> Date of Encounter: 10/02/17 Objective PUL Vital signs: Last Vital Signs Temp 98.5 F 10/02/17 07:23 Pulse 98 10/02/17 10:00 Resp 16 10/02/17 10:00 BP 100/70 10/02/17 10:00 Pulse Ox 96 10/02/17 10:00 Results - Laboratory Findings CBC and BMP: 10/02/17 04:10 10/02/17 04:10 Abnormal lab findings: Abnormal lab results RBC 3.42 M/mcL (3.82-4.97) L 10/02/17 04:10 Hgb 9.5 g/dL (11.5-15.4) L D 10/02/17 04:10 Hct 28.7 % (35.3-44.9) L 10/02/17 04:10 MCH 27.8 pg (28.0-33.3) L 10/02/17 04:10 ESR 39 mm/hr (0-15) H 10/01/17 05:55 Potassium 2.9 mEq/L (3.5-4.5) L D 10/02/17 04:10 Chloride 111 mEq/L (98-109) H 10/02/17 04:10 Creatinine 0.49 mg/dL (0.57-1.11) L 10/02/17 04:10 Glucose 138 mg/dL (70-99) H 10/02/17 04:10 Calcium 8.5 mg/dL (8.6-10.8) L 10/02/17 04:10 Venous Ioniz Calcium 1.38 mmol/L (1.15-1.35) H 10/02/17 06:29 Phosphorus 1.3 mg/dL (2.3-4.7) L 10/02/17 04:10 Magnesium 1.5 mg/dL (1.6-2.6) L 10/02/17 04:10 Creatine Kinase 211 Units/L (29-168) H 10/01/17 02:50 Albumin 2.8 g/dL (3.5-5.0) L 09/30/17 16:02 Albumin/Globulin Ratio 0.8 (1.1-2.2) L 09/30/17 16:02 TSH 8.668 mcIU/mL (0.350-4.840) H 09/30/17 16:02 Urine Clarity Turbid (Clear) A 09/30/17 15:00 Urine Protein 100 mg/dL (Neg-Trace) H 09/30/17 15:00 Urine Ketones Trace mg/dL (Negative) H 09/30/17 15:00 Urine Blood Small (Negative) H 09/30/17 15:00 Urine Bilirubin Small (Negative) H 09/30/17 15:00 Ur Leukocyte Esterase Large (Negative) H 09/30/17 15:00 Urine Microscopic RBC 5-15 per hpf (0-3) H 09/30/17 15:00 Urine Microscopic WBC TNTC per hpf (0-3) H 09/30/17 15:00 Ur Squamous Epith Cells Many per lpf (None-Few) H 09/30/17 15:00 Urine Bacteria Many per hpf (None-Few) H 09/30/17 15:00 - Microbiology Findings Microbiology Findings: Microbiology, Last 48 Hours 10/01/17 02:50 Blood Culture - Preliminary Central Venous Catheter No growth. 10/01/17 02:50 Blood Culture - Preliminary Central Venous Catheter No growth. 10/01/17 03:40 Urine Culture - Final Urine,Clean Catch No growth. - Clinical Findings Intake & Output: Intake & Output 10/01/17 10/02/17 10/02/17 23:59 07:59 15:59 Intake Total 360 / 360 500 / 500 1100 / 1100 Output Total 250 / 250 1400 / 1400 Balance 110 / 110 -900 / -900 1100 / 1100 Consult Discharge Plan - Plan Referrals: NONE,PCP [Primary Care Provider] - - Attending Attestation I examined this patient and my medical decision-making was reviewed with the Resident Physician. I agree with the documented findings, disposition and treatment plan as described except to the extent set forth below. We independently had [id number] contact with the patient Patient seen and examined at bedside Labs, radiology, chart personally reviewed. Management was reviewed during multidisciplinary critical care rounds. She has had intermittent readings of hypotension over the last 24 hours and vasopressor was started overnight. Although it is off now and I think that part of the problem has been inconsistent cuff readings from suboptimal positioning patient is completely asymptomatic. We will check laying to sitting Orthostatic VS. Her echo shows diastolic dysfunction but preserved ejection fraction We will aggressively replace her electrolytes which show response to mineralocorticoid prompting dose reduction of hydrocortisone which can be transitioned to oral agent over the next 24-48 hours. She will need close outpatient endocrine follow-up. She has had or so and PTOT consultations for ongoing weakness suggest neurology evaluation for possible myopathy I suspect component of depression which may benefit from mental health services we have also put in for a social service consult. She has a possible UTI for which she is being treated with ceftriaxone the microbiological data showed no culture but was obtained after administration of the antibiotic potentially making this unreliable. Otherwise and stable for transfer to [facility]. <Jerzy Peralta - Last Filed: 10/02/17 11:37> Date of Encounter: 10/02/17 Time of Encounter: 07:45 Assessment and Plan (1) Acute adrenal crisis Current Visit: Yes Status: Acute - Known history of adrenal insufficiency and being off from steroid for 8 months per patient. - Likely contributes to patient's persistent hypotension along with hyponatremia and hyperkalemia. - Improves as some improvement in hypotension and resolution of hyponatremia and hyperkalemia. - Given patient's hypoK, hypoMg and hypophos likely related to rapid correction of her adrenal insufficiency, will decrease IV hydrocortisone to 50 mg TID, which can be slowly transitioned to PO in 48 - 72 hours. - Given patient improves clinically and remains hemodynamically stable without the need of pressor since this morning, patient can be transferred to Med/Surg floor for further management. (2) Severe sepsis Current Visit: Yes Status: Acute - 2 SIRS criteria (tachycardia and leukocytosis) with lactic acid 4.0 on admission. - Likely secondary to UTI. - Blood cultures NGTD. - No growth for urine culture from 10/01/17 but patient did get first dose of IV ceftriaxone at 0023 before that urine culture collection at 0340 so it's likely unreliable. - Improves as leukocytosis decreases and lactic acid normalized (0.9 on repeat). - Continue IV ceftriaxone (since 10/01). (3) Hypotension Current Visit: Yes Status: Acute - Persistent hypotension even after >4 L of NS bolus. - Likely secondary to adrenal crisis. Severe sepsis on admission may also contribute in some degree. - On Levophed for pressure support overnight but is off since 7:30 am and patient seems to maintain acceptable blood pressure. - Continue IV hydrocortisone. - Continue close monitoring. Qualifiers: Hypotension type: other hypotension type Qualified Code(s): I95.89 - Other hypotension (4) UTI (urinary tract infection) Current Visit: Yes Status: Acute - Reported worsening urinary incontinence with large amount of leukocyte esterase and many bacteria on UA. - No growth for urine culture from 10/01/17 but patient did get first dose of IV ceftriaxone at 0023 before that urine culture collection at 0340 so it's likely unreliable. - Continue IV ceftriaxone (since 10/01). Qualifiers: Urinary tract infection type: site unspecified Hematuria presence: without hematuria Qualified Code(s): N39.0 - Urinary tract infection, site not specified (5) Diastolic CHF Current Visit: Yes Status: Acute - Echo on 10/01/17 found LVEF >70% but moderate left ventricular diastolic dysfunction noted. - Cautious about hydration with IV fluid. - Net +3953 mL so far. - No diuresis at this time given ongoing hypotension. - Strict I/O and daily weight. 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 - Elevated TSH 8.668 on admission with free T4 1.34 - Continue Synthroid. (7) Hypokalemia Current Visit: Yes Status: Acute - Initially hyperkalemic with K 4.8 on admission but decreased over time to the point now in hypokalemia with K 2.9 today - Likely related to correction of adrenal crisis. - Replace per electrolyte protocol. Also replace Mg per electrolyte as well given current hypomagnesemia. - Continue to monitor closely. (8) Hypomagnesemia Current Visit: Yes Status: Acute - Mg 1.5 this morning. - Likely related to correction of adrenal crisis. - Replace per electrolyte protocol. - Continue monitor. (9) Hypophosphatemia Current Visit: Yes Status: Acute - PO4 1.3 this morning. - Likely related to correction of adrenal crisis. - Replace per electrolyte protocol. - Continue monitor. (10) Hyponatremia Current Visit: Yes Status: Resolved - Na 122 on admission. - Likely related to patient's adrenal insufficiency/crisis. - Improves as Na 138 this morning after being on IV hydrocortisone. - Continue close monitoring. (11) Bilateral knee pain Current Visit: Yes Status: Chronic - Per patient, bilateral knee pain and unable to extend the knee for 6 months resulting in inability to ambulate for past 3 months. - Bilateral knee X-ray found osteopenia but no acute osseous abnormality of the bilateral knees. - Orthopedic surgery recommends prolonged course of therapy and outpatient follow-up with sports medicine but no acute intervention indicated at this time. - PT/OT consulted. Qualifiers: Chronicity: chronic Qualified Code(s): M25.561 - Pain in right knee; M25.562 - Pain in left knee; M25.562 - Pain in left knee; G89.29 - Other chronic pain; G89.29 - Other chronic pain (12) Physical deconditioning Current Visit: Yes Status: Chronic - Likely secondary to 3 months of not ambulating and lying on couch. - PT/OT consulted. (13) DVT prophylaxis Current Visit: Yes Status: Acute - Continue SQ heparin. GI prophylaxis: Pepcid. Subjective Principal diagnosis: Adrenal crisis Interval history: Patient was noted to have low BP in 80s/50s range overnight so restarted on Levophed and received 500 mL of NS bolus. Patient was seen and examined this morning. Patient has no complaint except her bilateral knee pain. Patient denies nausea, vomiting, abdominal pain, lightheadedness, palpitation, chest pain, shortness of breath. Objective PUL Vital signs: Last Vital Signs Temp 98.5 F 10/02/17 07:23 Pulse 79 10/02/17 06:00 Resp 16 10/02/17 06:00 BP 104/59 10/02/17 06:00 Pulse Ox 96 10/02/17 06:00 General appearance: no acute distress Eyes: nonicteric ENT: oropharynx moist Neck: supple Effort: normal Auscultation: bilateral: clear Cardiovascular: regular rate and rhythm Gastrointestinal: normoactive bowel sounds, non-tender, non-distended Integumentary: erythema (heel and buttock) Extremities: no cyanosis, no edema, other (Bilateral knees in flex position) normal mental status, non-focal exam Results - Laboratory Findings CBC and BMP: 10/02/17 04:10 10/02/17 04:10 Abnormal lab findings: Abnormal lab results RBC 3.42 M/mcL (3.82-4.97) L 10/02/17 04:10 Hgb 9.5 g/dL (11.5-15.4) L D 10/02/17 04:10 Hct 28.7 % (35.3-44.9) L 10/02/17 04:10 MCH 27.8 pg (28.0-33.3) L 10/02/17 04:10 ESR 39 mm/hr (0-15) H 10/01/17 05:55 Potassium 2.9 mEq/L (3.5-4.5) L D 10/02/17 04:10 Chloride 111 mEq/L (98-109) H 10/02/17 04:10 Creatinine 0.49 mg/dL (0.57-1.11) L 10/02/17 04:10 Glucose 138 mg/dL (70-99) H 10/02/17 04:10 Calcium 8.5 mg/dL (8.6-10.8) L 10/02/17 04:10 Venous Ioniz Calcium 1.38 mmol/L (1.15-1.35) H 10/02/17 06:29 Phosphorus 1.3 mg/dL (2.3-4.7) L 10/02/17 04:10 Magnesium 1.5 mg/dL (1.6-2.6) L 10/02/17 04:10 Creatine Kinase 211 Units/L (29-168) H 10/01/17 02:50 Albumin 2.8 g/dL (3.5-5.0) L 09/30/17 16:02 Albumin/Globulin Ratio 0.8 (1.1-2.2) L 09/30/17 16:02 TSH 8.668 mcIU/mL (0.350-4.840) H 09/30/17 16:02 Urine Clarity Turbid (Clear) A 09/30/17 15:00 Urine Protein 100 mg/dL (Neg-Trace) H 09/30/17 15:00 Urine Ketones Trace mg/dL (Negative) H 09/30/17 15:00 Urine Blood Small (Negative) H 09/30/17 15:00 Urine Bilirubin Small (Negative) H 09/30/17 15:00 Ur Leukocyte Esterase Large (Negative) H 09/30/17 15:00 Urine Microscopic RBC 5-15 per hpf (0-3) H 09/30/17 15:00 Urine Microscopic WBC TNTC per hpf (0-3) H 09/30/17 15:00 Ur Squamous Epith Cells Many per lpf (None-Few) H 09/30/17 15:00 Urine Bacteria Many per hpf (None-Few) H 09/30/17 15:00 - Microbiology Findings Microbiology Findings: Microbiology, Last 48 Hours 10/01/17 02:50 Blood Culture - Preliminary Central Venous Catheter No growth. 10/01/17 02:50 Blood Culture - Preliminary Central Venous Catheter No growth. 10/01/17 03:40 Urine Culture - Final Urine,Clean Catch No growth. - Clinical Findings Intake & Output: Intake & Output 10/01/17 10/02/17 10/02/17 23:59 07:59 15:59 Intake Total 360 / 360 500 / 500 Output Total 250 / 250 1400 / 1400 Balance 110 / 110 -900 / -900
[2017-10-02] MEDS: Famotidine 20 MG TABLET PO SCH ×2 (08:26→20:29)
[2017-10-02] MEDS: cefTRIAXone 1,000 MG in Water for inj. (sterile) 10 ML IVP SCH (08:27)
[2017-10-02] MEDS: Nystatin Cream 15 GM TUBE TP SCH ×3 (09:00→20:30)
[2017-10-02] MEDS ORDERED: Temazepam 15 MG CAPSULE PO PRN (11:42)
[2017-10-02] MEDS ORDERED: Naloxone 0.4 MG/ML INJ IVP PRN (11:42)
[2017-10-02] MEDS ORDERED: Ondansetron ODT 4 MG TAB.RAPDIS SL PRN (11:42)
[2017-10-02] MEDS ORDERED: cefTRIAXone 1,000 MG in Water for inj. (sterile) 10 ML IVP SCH (12:00)
[2017-10-03 04:08] LABS: Basophils % 0.1 %; Eosinophils % 0.1 %; Hematocrit 28.9 % (35.3-44.9); Hemoglobin 9.3 g/dL (11.5-15.4); Immature Granulocytes % 0.7 % (0-4); Lymphocytes # 0.9 K/mcL (0.6-4.6); Lymphocytes % 12.1 %; Mean Corpuscular HGB Conc 32.2 g/dL (31.6-35.5); Mean Corpuscular Hemoglobin 27.7 pg (28.0-33.3); Monocytes # 0.5 K/mcL (0.0-1.3); Monocytes % 6.7 %; Neutrophils # 5.9 K/mcL (1.6-8.9); Platelet Count 295 K/mcL (140-400); Red Blood Count 3.36 M/mcL (3.82-4.97); Red Cell Distribution Width 13.6 % (11.5-14.5); Segmented Neutrophils % 80.3 %
[2017-10-03 04:18] LABS: Magnesium 1.8 mg/dL (1.6-2.6); Phosphorous 1.7 mg/dL (2.3-4.7)
[2017-10-03 04:19] LABS: BUN/Creatinine Ratio 15 (6-26); Blood Urea Nitrogen 7 mg/dL (7-20); Calcium 8.3 mg/dL (8.6-10.8); Carbon Dioxide 20 mEq/L (19-29); Chloride 111 mEq/L (98-109); Glucose 102 mg/dL (70-99); Osmolality,Calculated 288 (280-300); Potassium 3.6 mEq/L (3.5-4.5); Sodium 140 mEq/L (136-145); eGFR For African Americans > 60 (> 60); eGFR For Non-African Americans > 60 (> 60)
[2017-10-03] MEDS: Levothyroxine 25 MCG TABLET PO SCH (05:41)
[2017-10-03] MEDS: *HR* Heparin 5,000 UNIT/ML VIAL SQ SCH ×2 (05:41→17:42)
[2017-10-03] MEDS: cefTRIAXone 1,000 MG in Water for inj. (sterile) 10 ML IVP SCH (09:51)
[2017-10-03] MEDS: Nystatin Cream 15 GM TUBE TP SCH ×3 (09:52→21:39)
[2017-10-03] MEDS: Famotidine 20 MG TABLET PO SCH ×2 (09:52→21:39)
[2017-10-03] MEDS: Hydrocortisone Sodium Succ 100 MG/2 ML VIAL IVP SCH ×3 (09:52→23:27)
--- NOTE | 2017-10-03 10:36 | Internal Med Progress Note ---
Date of Encounter: 10/03/17 Time of Encounter: 10:40 - Assessment and plan (1) Acute adrenal crisis Current Visit: Yes Status: Acute Assessment and plan: Patient is doing better, though her BP is still soft. Will monitor. Keep on IV steroids today and no changes. Eventually I plan on d/c on hydrocortisone 20 mg a day in 3 divided doses ( maybe 10 mg in the morning then 10 mg in divided dosed into the afternoon) and fludrcortisone .1 mg daily. It is important that she follows up with an plastering supervisor referred by her PCP. (2) Hyponatremia Current Visit: Yes Status: Resolved Assessment and plan: resolved. (3) Hyperkalemia Current Visit: Yes Status: Acute Assessment and plan: resolved. K 3.6 today. Will give 40 meq or KCL today (4) UTI (urinary tract infection) Current Visit: Yes Status: Acute Assessment and plan: c/w ceftriaxone here. cultures negative Qualifiers: Urinary tract infection type: site unspecified Hematuria presence: without hematuria Qualified Code(s): N39.0 - Urinary tract infection, site not specified (5) Bilateral knee pain Current Visit: Yes Status: Chronic Assessment and plan: This is associated with b/l knee contraction since about a couple of weeks. she has been mostly bed ridden since about 3 months. before that she has been cane dependent. seen by ortho and no intervention. needs PT work which is ordered. Her thyroid being off on admit can explain some of the muscle contracture. I will check a CT lumbar an rule out a back etiology Qualifiers: Chronicity: chronic Qualified Code(s): M25.561 - Pain in right knee; M25.562 - Pain in left knee; M25.562 - Pain in left knee; G89.29 - Other chronic pain; G89.29 - Other chronic pain (6) Hypothyroidism (acquired) Current Visit: Yes Status: Chronic Assessment and plan: c/w levothyroxine (7) Hypotension Current Visit: Yes Status: Acute Assessment and plan: Still soft. c/w IV steroids. Will continue to monitor. She maybe chronically low Qualifiers: Hypotension type: other hypotension type Qualified Code(s): I95.89 - Other hypotension (8) DVT prophylaxis Current Visit: Yes Status: Acute Assessment and plan: heparin SQ - Subjective Interval history: Patient is transferred out of the ICU and was being treated for adrenal insufficiency presenting as hypotension needing pressors, hyponatremia, hyperkalemia. She has been maintained on IV steroids. Has been treated by an plastering supervisor at [employer] but has been fired 8 months back. She is also being treated for UTI with ceftriaxone. She was seen by orthopedcs for b/l knee pain with no intervention needs. This morning she has been afebrile and feels tired. Her BP is in the low 100s systolically. - Constitutional Vitals: Temp Pulse Resp BP Pulse Ox 97.3 F L 95 16 100/62 95 10/03/17 07:46 10/03/17 07:46 10/03/17 07:46 10/03/17 07:46 10/03/17 07:46 General appearance: Present: A&O X 3, no acute distress Exam: GEN: NAD CVS: RRR. S1, S2, No m/r/g RESP: CTAB ABD: Soft, NT, ND, +BS EXT: No edema. 2+ DP, No rashes NEURO: Nonfocal Internal Medicine: Result - Labs CBC & Chem 7: 10/03/17 04:00 10/03/17 04:00 Labs: Short CBC 10/03/17 Range/Units 04:00 WBC 7.3 (4.3-11.1) K/mcL Hgb 9.3 L (11.5-15.4) g/dL Hct 28.9 L (35.3-44.9) % Plt Count 295 (140-400) K/mcL Neutrophils # 5.9 (1.6-8.9) K/mcL BMP 10/03/17 04:00 Sodium 140 Potassium 3.6 Chloride 111 H Carbon Dioxide 20 BUN 7 Creatinine 0.48 L Glucose 102 H Calcium 8.3 L Consult Discharge Plan - Plan Referrals: NONE,PCP [Primary Care Provider] -
[2017-10-03 15:08] LABS: ANA IgG by ELISA NONE DETECTED (None Detected)
[2017-10-03] MEDS: Norepinephrine 4 MG in D5% in Water 250 ML IVC SCH (19:10)
[2017-10-04 04:15] LABS: Basophils % 0.1 %; Eosinophils % 0.1 %; Hematocrit 30.2 % (35.3-44.9); Hemoglobin 9.6 g/dL (11.5-15.4); Immature Granulocytes % 1.1 % (0-4); Lymphocytes # 0.9 K/mcL (0.6-4.6); Lymphocytes % 11.5 %; Mean Corpuscular HGB Conc 31.8 g/dL (31.6-35.5); Mean Corpuscular Hemoglobin 27.7 pg (28.0-33.3); Mean Corpuscular Volume 87.3 fL (83.0-100.0); Mean Platelet Volume 9.6 fL (9.4-12.4); Monocytes # 0.5 K/mcL (0.0-1.3); Monocytes % 6.4 %; Neutrophils # 6.4 K/mcL (1.6-8.9); Platelet Count 299 K/mcL (140-400); Red Blood Count 3.46 M/mcL (3.82-4.97); Segmented Neutrophils % 80.8 %
[2017-10-04 04:23] LABS: BUN/Creatinine Ratio 31 (6-26); Blood Urea Nitrogen 16 mg/dL (7-20); Calcium 8.4 mg/dL (8.6-10.8); Carbon Dioxide 26 mEq/L (19-29); Chloride 111 mEq/L (98-109); Glucose 117 mg/dL (70-99); Osmolality,Calculated 294 (280-300); Potassium 3.6 mEq/L (3.5-4.5); Sodium 141 mEq/L (136-145); eGFR For African Americans > 60 (> 60); eGFR For Non-African Americans > 60 (> 60)
[2017-10-04] MEDS: *HR* Heparin 5,000 UNIT/ML VIAL SQ SCH ×2 (06:14→17:53)
[2017-10-04] MEDS: Levothyroxine 25 MCG TABLET PO SCH (06:15)
[2017-10-04] MEDS: Famotidine 20 MG TABLET PO SCH ×2 (09:54→22:08)
[2017-10-04] MEDS: cefTRIAXone 1,000 MG in Water for inj. (sterile) 10 ML IVP SCH (09:55)
[2017-10-04] MEDS: Hydrocortisone Sodium Succ 100 MG/2 ML VIAL IVP SCH ×2 (10:00→22:08)
[2017-10-04] MEDS: Nystatin Cream 15 GM TUBE TP SCH ×3 (10:02→22:08)
--- NOTE | 2017-10-04 12:07 | Internal Med Progress Note ---
Date of Encounter: 10/04/17 Time of Encounter: 08:30 - Assessment and plan (1) Acute adrenal crisis Current Visit: Yes Status: Acute Assessment and plan: Patient is doing better, BP is better. Will make IV steroids Q12 hours today. Eventually I plan on d/c on hydrocortisone 20 mg a day in 3 divided doses ( maybe 10 mg in the morning then 10 mg in divided dosed into the afternoon) and fludrcortisone .1 mg daily. 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 (2) Hyponatremia Current Visit: Yes Status: Resolved Assessment and plan: resolved. (3) Hyperkalemia Current Visit: Yes Status: Acute Assessment and plan: resolved. K 3.6 today. Will give 40 meq or KCL again today (4) UTI (urinary tract infection) Current Visit: Yes Status: Acute Assessment and plan: c/w ceftriaxone here. cultures negative Qualifiers: Urinary tract infection type: site unspecified Hematuria presence: without hematuria Qualified Code(s): N39.0 - Urinary tract infection, site not specified (5) Bilateral knee pain Current Visit: Yes Status: Chronic Assessment and plan: This is associated with b/l knee contraction since about a couple of weeks. CT lumbar negative. she has been mostly bed ridden since about 3 months. before that she has been cane dependent. seen by ortho and no intervention. needs PT work which is ordered. Her thyroid being off on admit can explain some of the muscle contracture. Qualifiers: Chronicity: chronic Qualified Code(s): M25.561 - Pain in right knee; M25.562 - Pain in left knee; M25.562 - Pain in left knee; G89.29 - Other chronic pain; G89.29 - Other chronic pain (6) Hypothyroidism (acquired) Current Visit: Yes Status: Chronic Assessment and plan: c/w levothyroxine (7) Hypotension Current Visit: Yes Status: Acute Assessment and plan: Better. c/w IV steroids. Will continue to monitor. She maybe chronically low Qualifiers: Hypotension type: other hypotension type Qualified Code(s): I95.89 - Other hypotension (8) DVT prophylaxis Current Visit: Yes Status: Acute Assessment and plan: heparin SQ - Subjective Interval history: No acute events. Doing well this morning. BP much better improved. She had no acute findings on CT lumbar spine. Afebrile. - Constitutional Vitals: Temp Pulse Resp BP Pulse Ox 97.5 F L 97 18 120/72 97 10/04/17 11:40 10/04/17 11:40 10/04/17 11:40 10/04/17 11:40 10/04/17 11:40 General appearance: Present: A&O X 3, no acute distress Exam: GEN: NAD CVS: RRR. S1, S2, No m/r/g RESP: CTAB ABD: Soft, NT, ND, +BS EXT: No edema. 2+ DP, No rashes NEURO: Nonfocal. B/l LE are flexed at the knees. She is able to push the Internal Medicine: Result - Labs CBC & Chem 7: 10/04/17 03:47 10/04/17 03:47 Labs: Short CBC 10/04/17 Range/Units 03:47 WBC 7.9 (4.3-11.1) K/mcL Hgb 9.6 L (11.5-15.4) g/dL Hct 30.2 L (35.3-44.9) % Plt Count 299 (140-400) K/mcL Neutrophils # 6.4 (1.6-8.9) K/mcL BMP 10/04/17 03:47 Sodium 141 Potassium 3.6 Chloride 111 H Carbon Dioxide 26 BUN 16 Creatinine 0.51 L Glucose 117 H Calcium 8.4 L - Impressions Impressions Lumbar Spine CT 10/03/17 11:05 IMPRESSION: Unremarkable non-contrast CT of the lumbar spine. D/ / Wayne Cosme / Wayne Cosme Interpreting Provider: Wayne Cosme Consult Discharge Plan - Plan Referrals: NONE,PCP [Primary Care Provider] -
[2017-10-05 05:17] LABS: Basophils % 0.4 %; Eosinophils # 0.1 K/mcL (0.0-0.6); Eosinophils % 0.9 %; Hematocrit 32.1 % (35.3-44.9); Hemoglobin 10.2 g/dL (11.5-15.4); Immature Granulocytes % 2.2 % (0-4); Lymphocytes # 1.6 K/mcL (0.6-4.6); Lymphocytes % 14.5 %; Mean Corpuscular HGB Conc 31.8 g/dL (31.6-35.5); Mean Corpuscular Hemoglobin 28.2 pg (28.0-33.3); Mean Corpuscular Volume 88.7 fL (83.0-100.0); Mean Platelet Volume 10.3 fL (9.4-12.4); Monocytes # 0.9 K/mcL (0.0-1.3); Monocytes % 7.9 %; Neutrophils # 8.2 K/mcL (1.6-8.9); Platelet Count 320 K/mcL (140-400); Red Blood Count 3.62 M/mcL (3.82-4.97); Red Cell Distribution Width 14.3 % (11.5-14.5); Segmented Neutrophils % 74.1 %
[2017-10-05 05:40] LABS: BUN/Creatinine Ratio 31 (6-26); Blood Urea Nitrogen 18 mg/dL (7-20); Calcium 8.6 mg/dL (8.6-10.8); Carbon Dioxide 26 mEq/L (19-29); Chloride 109 mEq/L (98-109); Glucose 111 mg/dL (70-99); Osmolality,Calculated 295 (280-300); Potassium 3.6 mEq/L (3.5-4.5); Sodium 141 mEq/L (136-145); eGFR For African Americans > 60 (> 60); eGFR For Non-African Americans > 60 (> 60)
[2017-10-05 05:49] LABS: Magnesium 1.3 mg/dL (1.6-2.6)
[2017-10-05] MEDS: Levothyroxine 25 MCG TABLET PO SCH (05:57)
[2017-10-05] MEDS: *HR* Heparin 5,000 UNIT/ML VIAL SQ SCH ×2 (05:57→18:02)
[2017-10-05] MEDS ORDERED: Magnesium Oxide 400 MG TABLET PO ONE (08:05)
[2017-10-05] MEDS: Famotidine 20 MG TABLET PO SCH ×2 (09:53→19:59)
[2017-10-05] MEDS: Baclofen 10 MG TABLET PO SCH ×3 (09:53→19:59)
[2017-10-05] MEDS: Hydrocortisone Sodium Succ 100 MG/2 ML VIAL IVP SCH ×2 (09:54→19:59)
[2017-10-05] MEDS: cefTRIAXone 1,000 MG in Water for inj. (sterile) 10 ML IVP SCH (09:54)
[2017-10-05] MEDS: Nystatin Cream 15 GM TUBE TP SCH ×3 (09:57→20:01)
--- NOTE | 2017-10-05 10:59 | Internal Med Progress Note ---
Date of Encounter: 10/05/17 Time of Encounter: 09:00 - Assessment and plan (1) Acute adrenal crisis Current Visit: Yes Status: Acute Assessment and plan: Patient is doing better, BP is better. Will keep IV steroids at Q12 hours today. Eventually I plan on d/c on hydrocortisone 20 mg a day in 3 divided doses ( maybe 10 mg in the morning then 10 mg in divided dosed into the afternoon) and fludrcortisone .1 mg daily. 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 (2) Hyponatremia Current Visit: Yes Status: Resolved Assessment and plan: resolved. (3) Hyperkalemia Current Visit: Yes Status: Acute Assessment and plan: resolved. K 3.6 today again.. Will give 40 meq or KCL again today (4) UTI (urinary tract infection) Current Visit: Yes Status: Acute Assessment and plan: c/w ceftriaxone here. cultures negative. I will probably due to more days of IV antibiotics and stop after. Qualifiers: Urinary tract infection type: site unspecified Hematuria presence: without hematuria Qualified Code(s): N39.0 - Urinary tract infection, site not specified (5) Bilateral knee pain Current Visit: Yes Status: Chronic Assessment and plan: This is associated with b/l knee contraction since about a couple of weeks. CT lumbar negative. she has been mostly bed ridden since about 3 months. before that she has been cane dependent. seen by ortho and no intervention. needs PT work which is ordered. Her thyroid being off on admit can explain some of the muscle contracture. I will add baclofen as a trial. Qualifiers: Chronicity: chronic Qualified Code(s): M25.561 - Pain in right knee; M25.562 - Pain in left knee; M25.562 - Pain in left knee; G89.29 - Other chronic pain; G89.29 - Other chronic pain (6) Hypothyroidism (acquired) Current Visit: Yes Status: Chronic Assessment and plan: c/w levothyroxine (7) Hypotension Current Visit: Yes Status: Acute Assessment and plan: Better. c/w IV steroids. Will continue to monitor. She maybe chronically low Qualifiers: Hypotension type: other hypotension type Qualified Code(s): I95.89 - Other hypotension (8) DVT prophylaxis Current Visit: Yes Status: Acute Assessment and plan: heparin SQ - Subjective Interval history: No acute events. Doing well this morning. BP remains stable. She has been afebrile. She is complaining of knee pain as she is unable to bend her knees fully. - Constitutional Vitals: Temp Pulse Resp BP Pulse Ox 98.2 F 78 18 128/76 96 10/05/17 10:20 10/05/17 10:20 10/05/17 10:20 10/05/17 10:20 10/05/17 10:20 General appearance: Present: A&O X 3, no acute distress Exam: GEN: NAD CVS: RRR. S1, S2, No m/r/g RESP: CTAB ABD: Soft, NT, ND, +BS EXT: No edema. 2+ DP, No rashes NEURO: Nonfocal. B/l LE are flexed at the knees. She is able to push the Internal Medicine: Result - Labs CBC & Chem 7: 10/05/17 04:55 10/05/17 04:55 Labs: Short CBC 10/05/17 Range/Units 04:55 WBC 11.0 (4.3-11.1) K/mcL Hgb 10.2 L (11.5-15.4) g/dL Hct 32.1 L (35.3-44.9) % Plt Count 320 (140-400) K/mcL Neutrophils # 8.2 (1.6-8.9) K/mcL BMP 10/05/17 04:55 Sodium 141 Potassium 3.6 Chloride 109 Carbon Dioxide 26 BUN 18 Creatinine 0.58 Glucose 111 H Calcium 8.6 Consult Discharge Plan - Plan Referrals: NONE,PCP [Primary Care Provider] -
[2017-10-05] MEDS: Acetaminophen 325 MG TABLET PO PRN (19:59)
[2017-10-06 03:44] LABS: Basophils # 0.1 K/mcL (0.0-0.2); Basophils % 0.3 %; Eosinophils % 0.3 %; Hematocrit 32.6 % (35.3-44.9); Hemoglobin 10.2 g/dL (11.5-15.4); Immature Granulocytes % 3.1 % (0-4); Lymphocytes # 2.2 K/mcL (0.6-4.6); Lymphocytes % 14.1 %; Mean Corpuscular HGB Conc 31.3 g/dL (31.6-35.5); Mean Corpuscular Volume 89.6 fL (83.0-100.0); Mean Platelet Volume 9.4 fL (9.4-12.4); Monocytes # 1.3 K/mcL (0.0-1.3); Monocytes % 8.5 %; Neutrophils # 11.6 K/mcL (1.6-8.9); Nucleated Red Blood Cells 0.1 /100 WBC (0); Platelet Count 333 K/mcL (140-400); Red Blood Count 3.64 M/mcL (3.82-4.97); Red Cell Distribution Width 14.3 % (11.5-14.5); Segmented Neutrophils % 73.7 %
[2017-10-06 03:49] LABS: BUN/Creatinine Ratio 49 (6-26); Blood Urea Nitrogen 24 mg/dL (7-20); Carbon Dioxide 26 mEq/L (19-29); Chloride 110 mEq/L (98-109); Glucose 118 mg/dL (70-99); Magnesium 1.9 mg/dL (1.6-2.6); Osmolality,Calculated 297 (280-300); Phosphorous 2.4 mg/dL (2.3-4.7); Potassium 4.3 mEq/L (3.5-4.5); Sodium 141 mEq/L (136-145); eGFR For African Americans > 60 (> 60); eGFR For Non-African Americans > 60 (> 60)
[2017-10-06] MEDS: *HR* Heparin 5,000 UNIT/ML VIAL SQ SCH ×2 (05:17→17:10)
[2017-10-06] MEDS: Levothyroxine 25 MCG TABLET PO SCH (05:17)
[2017-10-06] MEDS: Nystatin Cream 15 GM TUBE TP SCH ×3 (08:46→21:57)
[2017-10-06] MEDS: Baclofen 10 MG TABLET PO SCH ×3 (08:46→21:57)
[2017-10-06] MEDS: Famotidine 20 MG TABLET PO SCH ×2 (08:46→21:57)
[2017-10-06] MEDS: cefTRIAXone 1,000 MG in Water for inj. (sterile) 10 ML IVP SCH (08:46)
[2017-10-06] MEDS: Hydrocortisone Sodium Succ 100 MG/2 ML VIAL IVP SCH ×2 (08:47→21:56)
--- NOTE | 2017-10-06 13:37 | Internal Med Progress Note ---
Date of Encounter: 10/06/17 Time of Encounter: 07:30 - Assessment and plan (1) Acute adrenal crisis Current Visit: Yes Status: Acute Assessment and plan: Patient is doing better, her blood pressure is on the softer side this morning. I have decreased her steroids to every 12 hours yesterday. I do not plan on changing that today. Will keep IV steroids at Q12 hours today. Eventually I plan on d/c on hydrocortisone 20 mg a day in 3 divided doses ( maybe 10 mg in the morning then 10 mg in divided dosed into the afternoon) and fludrcortisone .1 mg daily. 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 (2) Hyponatremia Current Visit: Yes Status: Resolved Assessment and plan: resolved. (3) Hyperkalemia Current Visit: Yes Status: Acute Assessment and plan: resolved. (4) UTI (urinary tract infection) Current Visit: Yes Status: Acute Assessment and plan: c/w ceftriaxone here. cultures negative. I will probably do another day of IV antibiotics and stop after. Qualifiers: Urinary tract infection type: site unspecified Hematuria presence: without hematuria Qualified Code(s): N39.0 - Urinary tract infection, site not specified (5) Bilateral knee pain Current Visit: Yes Status: Chronic Assessment and plan: This is associated with b/l knee contraction since about a couple of weeks. CT lumbar negative. she has been mostly bed ridden since about 3 months. before that she has been cane dependent. seen by ortho and no intervention. needs PT work. Her thyroid being off on admit can explain some of the muscle contracture. Continue with baclofen. Qualifiers: Chronicity: chronic Qualified Code(s): M25.561 - Pain in right knee; M25.562 - Pain in left knee; M25.562 - Pain in left knee; G89.29 - Other chronic pain; G89.29 - Other chronic pain (6) Hypothyroidism (acquired) Current Visit: Yes Status: Chronic Assessment and plan: c/w levothyroxine (7) Hypotension Current Visit: Yes Status: Acute Assessment and plan: Better. c/w IV steroids. Will continue to monitor. She maybe chronically low Qualifiers: Hypotension type: other hypotension type Qualified Code(s): I95.89 - Other hypotension (8) DVT prophylaxis Current Visit: Yes Status: Acute Assessment and plan: heparin SQ - Subjective Interval history: No acute events. Doing well this morning. Her blood pressure is on the softer side this morning. I did decrease her steroids yesterday . She is started on baclofen yesterday and tells me that it has not really helped yet. She has been afebrile - Constitutional Vitals: Temp Pulse Resp BP Pulse Ox 97.3 F L 76 16 99/62 97 10/06/17 11:59 10/06/17 11:59 10/06/17 11:59 10/06/17 11:59 10/06/17 11:59 General appearance: Present: A&O X 3, no acute distress Exam: GEN: NAD CVS: RRR. S1, S2, No m/r/g RESP: CTAB ABD: Soft, NT, ND, +BS EXT: No edema. 2+ DP, No rashes NEURO: Nonfocal. B/l LE are flexed at the knees. She is able to extend the knees bilaterally but then they return to flexed position Internal Medicine: Result - Labs CBC & Chem 7: 10/06/17 03:27 10/06/17 03:27 Labs: Short CBC 10/06/17 Range/Units 03:27 WBC 15.7 H (4.3-11.1) K/mcL Hgb 10.2 L (11.5-15.4) g/dL Hct 32.6 L (35.3-44.9) % Plt Count 333 (140-400) K/mcL Neutrophils # 11.6 H (1.6-8.9) K/mcL BMP 10/06/17 03:27 Sodium 141 Potassium 4.3 Chloride 110 H Carbon Dioxide 26 BUN 24 H Creatinine 0.49 L Glucose 118 H Calcium 8.0 L Consult Discharge Plan - Plan Referrals: NONE,PCP [Primary Care Provider] -
[2017-10-06] MEDS: Acetaminophen 325 MG TABLET PO PRN (13:39)
[2017-10-07 03:35] LABS: Basophils # 0.1 K/mcL (0.0-0.2); Basophils % 0.5 %; Eosinophils # 0.7 K/mcL (0.0-0.6); Eosinophils % 3.8 %; Hematocrit 33.1 % (35.3-44.9); Hemoglobin 10.5 g/dL (11.5-15.4); Immature Granulocytes % 4.1 % (0-4); Lymphocytes # 5.3 K/mcL (0.6-4.6); Lymphocytes % 26.8 %; Mean Corpuscular HGB Conc 31.7 g/dL (31.6-35.5); Mean Corpuscular Hemoglobin 28.5 pg (28.0-33.3); Mean Corpuscular Volume 89.7 fL (83.0-100.0); Monocytes # 1.7 K/mcL (0.0-1.3); Monocytes % 8.8 %; Nucleated Red Blood Cells 0.1 /100 WBC (0); Platelet Count 324 K/mcL (140-400); Red Blood Count 3.69 M/mcL (3.82-4.97); Red Cell Distribution Width 15.2 % (11.5-14.5)
[2017-10-07 03:48] LABS: Blood Urea Nitrogen 23 mg/dL (7-20); Carbon Dioxide 26 mEq/L (19-29); Chloride 108 mEq/L (98-109); Potassium 4.4 mEq/L (3.5-4.5); Sodium 139 mEq/L (136-145)
[2017-10-07 03:49] LABS: Alanine Aminotransferase 39 Units/L (0-55); Albumin/Globulin Ratio 0.8 (1.1-2.2); Alkaline Phosphatase 46 Units/L (38-126); Aspartate Amino Transferase 33 Units/L (5-34); BUN/Creatinine Ratio 49 (6-26); Globulin 2.5 g/dL (2.4-3.5); Glucose 84 mg/dL (70-99); Magnesium 1.6 mg/dL (1.6-2.6); Osmolality,Calculated 291 (280-300); Total Protein 4.4 g/dL (6.0-8.3); eGFR For African Americans > 60 (> 60); eGFR For Non-African Americans > 60 (> 60)
[2017-10-07 03:50] LABS: Albumin 1.9 g/dL (3.5-5.0); Bilirubin,Total < 0.2 mg/dL (0.2-1.2)
[2017-10-07] MEDS: Acetaminophen 325 MG TABLET PO PRN (05:21)
[2017-10-07] MEDS: Levothyroxine 25 MCG TABLET PO SCH (05:21)
[2017-10-07] MEDS: *HR* Heparin 5,000 UNIT/ML VIAL SQ SCH ×2 (05:21→18:06)
[2017-10-07] MEDS ORDERED: Magnesium Oxide 400 MG TABLET PO ONE (07:17)
[2017-10-07] MEDS ORDERED: Hydrocortisone Sodium Succ 100 MG/2 ML VIAL IVP SCH (09:00)
[2017-10-07] MEDS: *HR* HYDROcodone/Acet 5/325 mg TABLET PO PRN ×3 (09:12→21:46)
[2017-10-07] MEDS: Famotidine 20 MG TABLET PO SCH ×2 (09:13→21:46)
[2017-10-07] MEDS: Baclofen 10 MG TABLET PO SCH ×3 (09:13→21:46)
[2017-10-07] MEDS: Nystatin Cream 15 GM TUBE TP SCH ×4 (09:15→21:52)
[2017-10-07] MEDS: cefTRIAXone 1,000 MG in Water for inj. (sterile) 10 ML IVP SCH (09:15)
--- NOTE | 2017-10-07 13:33 | Internal Med Progress Note ---
Date of Encounter: 10/07/17 Time of Encounter: 08:00 - Assessment and plan (1) Acute adrenal crisis Current Visit: Yes Status: Acute Assessment and plan: Patient is doing better, her blood pressure is on the softer side this morning. I have decreased her steroids to daily starting today. Eventually I plan on d /c on hydrocortisone 20 mg a day in 3 divided doses ( maybe 10 mg in the morning then 10 mg in divided dosed into the afternoon) and fludrcortisone .1 mg daily. 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 (2) Hyponatremia Current Visit: Yes Status: Resolved Assessment and plan: resolved. (3) Hyperkalemia Current Visit: Yes Status: Acute Assessment and plan: resolved. (4) UTI (urinary tract infection) Current Visit: Yes Status: Acute Assessment and plan: Stop IV ceftriaxone after today. Cultures have been negative. Qualifiers: Urinary tract infection type: site unspecified Hematuria presence: without hematuria Qualified Code(s): N39.0 - Urinary tract infection, site not specified (5) Bilateral knee pain Current Visit: Yes Status: Chronic Assessment and plan: This is associated with b/l knee contraction since about a couple of weeks. This is much improved now as she is able to extend the knees and keep them extended. Unfortunately, her knee pain has been an issue and has prevented her from working with PT. baclofen has not help. I will try norco. I think if we can get over the pain, we may be able to get her to work with PT which would be of great benefit to her. CT lumbar negative. she has been mostly bed ridden since about 3 months. before that she has been cane dependent. seen by ortho and no intervention. Possibly adrenal insufficient and her thyroid being off on admit can explain some of the muscle contracture. Qualifiers: Chronicity: chronic Qualified Code(s): M25.561 - Pain in right knee; M25.562 - Pain in left knee; M25.562 - Pain in left knee; G89.29 - Other chronic pain; G89.29 - Other chronic pain (6) Hypothyroidism (acquired) Current Visit: Yes Status: Chronic Assessment and plan: c/w levothyroxine (7) Hypotension Current Visit: Yes Status: Acute Assessment and plan: Better. c/w IV steroids. Will continue to monitor. She maybe chronically low Qualifiers: Hypotension type: other hypotension type Qualified Code(s): I95.89 - Other hypotension (8) DVT prophylaxis Current Visit: Yes Status: Acute Assessment and plan: heparin SQ - Subjective Interval history: No acute events. Doing well this morning. Her blood pressure is marginal. She still complains of left knee pain. She is not able to tolerate much PT. - Constitutional Vitals: Temp Pulse Resp BP Pulse Ox 97.6 F 85 16 97/61 97 10/07/17 07:59 10/07/17 07:59 10/07/17 07:59 10/07/17 07:59 10/07/17 07:59 General appearance: Present: A&O X 3, no acute distress Exam: GEN: NAD CVS: RRR. S1, S2, No m/r/g RESP: CTAB ABD: Soft, NT, ND, +BS EXT: No edema. 2+ DP, No rashes NEURO: Nonfocal. B/l LE are flexed at the knees. She is able to extend the knees bilaterally Internal Medicine: Result - Labs CBC & Chem 7: 10/07/17 03:27 10/07/17 03:27 Labs: Short CBC 10/07/17 Range/Units 03:27 WBC 19.6 H (4.3-11.1) K/mcL Hgb 10.5 L (11.5-15.4) g/dL Hct 33.1 L (35.3-44.9) % Plt Count 324 (140-400) K/mcL Neutrophils # 11.0 H (1.6-8.9) K/mcL BMP 10/07/17 03:27 Sodium 139 Potassium 4.4 Chloride 108 Carbon Dioxide 26 BUN 23 H Creatinine 0.47 L Glucose 84 Calcium 8.0 L Liver Function 10/07/17 Range/Units 03:27 Total Bilirubin < 0.2 L (0.2-1.2) mg/dL AST 33 (5-34) Units/L ALT 39 (0-55) Units/L Alkaline Phosphatase 46 (38-126) Units/L Albumin 1.9 L (3.5-5.0) g/dL Consult Discharge Plan - Plan Referrals: NONE,PCP [Primary Care Provider] -
[2017-10-08] MEDS: *HR* HYDROcodone/Acet 5/325 mg TABLET PO PRN ×3 (03:46→19:40)
[2017-10-08 03:55] LABS: Basophils # 0.1 K/mcL (0.0-0.2); Basophils % 0.4 %; Eosinophils # 0.6 K/mcL (0.0-0.6); Eosinophils % 3.9 %; Hemoglobin 10.1 g/dL (11.5-15.4); Immature Granulocytes % 3.7 % (0-4); Lymphocytes # 4.5 K/mcL (0.6-4.6); Lymphocytes % 28.4 %; Mean Corpuscular HGB Conc 31.6 g/dL (31.6-35.5); Mean Corpuscular Hemoglobin 28.6 pg (28.0-33.3); Mean Corpuscular Volume 90.7 fL (83.0-100.0); Monocytes # 1.3 K/mcL (0.0-1.3); Monocytes % 7.9 %; Neutrophils # 8.8 K/mcL (1.6-8.9); Nucleated Red Blood Cells 0.1 /100 WBC (0); Platelet Count 291 K/mcL (140-400); Red Blood Count 3.53 M/mcL (3.82-4.97); Red Cell Distribution Width 15.5 % (11.5-14.5); Segmented Neutrophils % 55.7 %
[2017-10-08 04:09] LABS: BUN/Creatinine Ratio 39 (6-26); Blood Urea Nitrogen 20 mg/dL (7-20); Calcium 7.8 mg/dL (8.6-10.8); Carbon Dioxide 28 mEq/L (19-29); Chloride 106 mEq/L (98-109); Glucose 107 mg/dL (70-99); Magnesium 1.6 mg/dL (1.6-2.6); Osmolality,Calculated 289 (280-300); Phosphorous 3.3 mg/dL (2.3-4.7); Potassium 4.1 mEq/L (3.5-4.5); Sodium 138 mEq/L (136-145); eGFR For African Americans > 60 (> 60); eGFR For Non-African Americans > 60 (> 60)
[2017-10-08] MEDS: Levothyroxine 25 MCG TABLET PO SCH (05:44)
[2017-10-08] MEDS: *HR* Heparin 5,000 UNIT/ML VIAL SQ SCH ×2 (05:44→16:39)
[2017-10-08] MEDS: Famotidine 20 MG TABLET PO SCH ×2 (08:38→21:13)
[2017-10-08] MEDS: Baclofen 10 MG TABLET PO SCH ×3 (08:38→21:12)
[2017-10-08] MEDS: Hydrocortisone 10 MG TABLET PO SCH ×2 (08:38→21:12)
[2017-10-08] MEDS: Nystatin Cream 15 GM TUBE TP SCH ×3 (08:41→21:13)
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
[2017-10-08] MEDS: *HR* OxyCODONE Immed Rel 5 MG TABLET PO ONE (23:04)
[2017-10-09] MEDS: *HR* OxyCODONE Immed Rel 5 MG TABLET PO ONE (01:38)
[2017-10-09] MEDS: *HR* HYDROcodone/Acet 5/325 mg TABLET PO PRN ×2 (03:06→08:01)
[2017-10-09] MEDS: Levothyroxine 25 MCG TABLET PO SCH (06:46)
[2017-10-09] MEDS: *HR* Heparin 5,000 UNIT/ML VIAL SQ SCH (06:46)
[2017-10-09] MEDS: Baclofen 10 MG TABLET PO SCH (08:01)
[2017-10-09] MEDS: Hydrocortisone 10 MG TABLET PO SCH (08:01)
[2017-10-09] MEDS: Nystatin Cream 15 GM TUBE TP SCH (08:03)
[2017-10-09] MEDS: Famotidine 20 MG TABLET PO SCH (08:08)
[2017-10-09 08:39] VITALS: BP 92/60
--- NOTE | 2017-10-09 08:58 | Physician Discharge Referral ---
ExtendedCare Referral Info Transfer To: SNF/In-patient rehab Provider in Charge: Yennifer Alonzo Provider in Charge after Transfer: PCP Institutional Level of Care: Skilled - Diagnosis (1) Acute adrenal crisis Priority: Primary Status: Resolved (2) History of [place]'s disease Priority: Secondary Status: Chronic (3) Hyponatremia Priority: Primary Status: Resolved (4) Hyperkalemia Priority: Primary Status: Resolved (5) Leukocytosis Priority: Primary Status: Acute (6) UTI (urinary tract infection) Priority: Primary Status: Suspected (7) Sepsis Priority: Primary Status: Resolved (8) DVT prophylaxis Priority: Primary Status: Acute (9) Bilateral knee pain Priority: Secondary Status: Chronic (10) Hypothyroidism (acquired) Priority: Secondary Status: Chronic (11) Physical deconditioning Priority: Secondary Status: Chronic (12) Diastolic CHF Priority: Secondary Status: Chronic Prognosis: Fair Aware of Diagnosis: Patient Aware of Prognosis: Patient - Transfer Medications Home Medications: No Known Home Drugs 09/30/17 [History] Allergies/Adverse Reactions: 3 Allergy/AdvReac Type Severity Reaction Status Date / Time morphine AdvReac Rash Verified 09/30/17 17:53 - Respiratory Orders Smoking Cessation: Smoking cessation has been advised. For more information, call the [place] Tobacco Quit Line at 3-774-IZHPNOW. - Advance Directives Code Status: Full Code - Mobility Orders Ambulate - Rehabiliation Orders Rehab Potential: Fair Rehab Orders: ROM Exercises, Evaluation for Physical Therapy - Diet Orders Regular CERTIFICATION: I certify that the transfer of the above named patient to an Extended Care Facility is necessary for the continuing treatment of the diagnosis listed. The above information is true and accurate reflection of patient's current condition. Confidential - Redisclosure prohibited without a patient's written consent.
--- NOTE | 2017-10-09 09:01 | Discharge Summary ---
Date of Encounter: 10/09/17 Time of Encounter: 08:58 - Discharge Diagnosis (1) Acute adrenal crisis Priority: Primary Status: Resolved (2) History of [place]'s disease Priority: Secondary Status: Chronic (3) Hyponatremia Priority: Primary Status: Resolved (4) Hyperkalemia Priority: Primary Status: Resolved (5) Leukocytosis Priority: Primary Status: Acute Qualifiers: Leukocytosis type: unspecified Qualified Code(s): D72.829 - Elevated white blood cell count, unspecified (6) UTI (urinary tract infection) Priority: Primary Status: Suspected Qualifiers: Urinary tract infection type: site unspecified Hematuria presence: without hematuria Qualified Code(s): N39.0 - Urinary tract infection, site not specified (7) Sepsis Priority: Secondary Status: Resolved Qualifiers: Sepsis type: sepsis due to unspecified organism Qualified Code(s): A41.9 - Sepsis, unspecified organism (8) DVT prophylaxis Priority: Secondary Status: Acute (9) Bilateral knee pain Priority: Secondary Status: Chronic Qualifiers: Chronicity: chronic Qualified Code(s): M25.561 - Pain in right knee; M25.562 - Pain in left knee; M25.562 - Pain in left knee; G89.29 - Other chronic pain; G89.29 - Other chronic pain (10) Hypothyroidism (acquired) Priority: Secondary Status: Chronic (11) Physical deconditioning Priority: Secondary Status: Chronic (12) Diastolic CHF Priority: Secondary Status: Chronic Qualifiers: Congestive heart failure chronicity: unspecified congestive heart failure chronicity Qualified Code(s): I50.30 - Unspecified diastolic (congestive) heart failure - Discharge Medications Prescriptions: HYDROcodone/Acet 5/325 mg [[place] 5-325 mg] 1 tab PO Q6HR PRN #20 tablet PRN Reason: Pain Home Medications: Baclofen [Lioresal] 5 mg PO TID tablet 10/09/17 [Rx] Docusate [Colace] 100 mg PO DAILY PRN capsule 10/09/17 [Rx] Famotidine [Pepcid] 20 mg PO BID tablet 10/09/17 [Rx] Fludrocortisone Acetate [Florinef] 0.1 mg PO DAILY tablet 10/09/17 [Rx] HYDROcodone/Acet 5/325 mg [[place] 5-325 mg] 1 tab PO Q6HR PRN #20 tablet [Rx] Hydrocortisone [Cortef] 10 mg PO BID tablet 10/09/17 [Rx] Levothyroxine [Synthroid] 25 mcg PO DAILY@0630 tablet 10/09/17 [Rx] Nystatin Cream [Mycostatin Cream] 1 appl TP TID tube 10/09/17 [Rx] Temazepam [Restoril] 15 mg PO HS PRN capsule 10/09/17 [Rx] Allergies/Adverse Reactions: 3 Allergy/AdvReac Type Severity Reaction Status Date / Time morphine AdvReac Rash Verified 09/30/17 17:53 Date of admission: 09/30/17 20:22 Primary care physician: PCP NONE Consults: 09/30/17 22:43 Consult to Orthopedic Surgery [CONS] Routine Consulting Provider: [facility] Reason for Consult: Patient cannot walk or extend knee Call Completed: No 10/01/17 09:40 Consult to Critical Care [CONS] Routine Consulting Provider: [facility] [place] Reason for Consult: septic shock Time Notified: 15:00 Call Completed: Yes 10/01/17 10:05 Consult to Synthetic Cloth Binding Cutter [CONS] Routine Reason for SW Consult: pt without insurance x 8 months, has not taken meds 10/01/17 10:06 Consult to Occupational Therapy [CONS] Routine Comment: Evaluate, develop and implement POC Reason for Consult: Decondition. Pt is not ambulating for 3 months due to bilateral knee pain Consult to Physical Therapy [CONS] Routine Comment: Evaluate, develop and implement POC Reason for Consult: Decondition. Pt is not ambulating for 3 months due to bilateral knee pain 10/03/17 10:27 Consult to Occupational Therapy [CONS] Routine Comment: Evaluate, develop and implement POC Reason for Consult: therapy/placement needs Consult to Physical Therapy [CONS] Routine Comment: Evaluate, develop and implement POC Reason for Consult: PT eval Discharging clinician: Amadeo Alonzo Anticipated date of discharge: 10/09/17 - Patient Status Disposition: Transfer Inpatient Rehab Fac Condition: Good Functional capacity at discharge: bed bound Overall status at discharge: patient is progressing back to baseline - Discharge Instructions Follow Up With: NONE,PCP [Primary Care Provider] - Forms: ED Satisfaction Letter Additional Instructions: ESTABLISH PCP WITH TASHA - Diet and Activity Activity: increase activity as tolerated Interval History: Ms. Mendoza is a 57 year old female with past medical history of Martin's disease and Althea's who presented to the ED complaining of bilateral knee pain. She stated that she has been immobile for the past 3 months due to the knee pain. She has been to orthopedic physician in [place] whom did x-rays of her knees and did not find anything wrong. She stated that she cannot straighten out her legs. 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 She admitted to nausea and vomiting. She denied fever, chills, chest pain, shortness of breath, abdominal pain, dysuria, difficulty urinating, melena, hematochezia. The patient was a poor historian, difficult to ask questions to, in reluctant to answer some questions to further investigate the knee pain and [place]'s disease. In the ED the patient was septic with WBC 19.1, lactic acid 4, tachycardia. Urinalysis: positive leukocyte esterase. hyponatremia, hyperkalemia, KAMLA. Central line was performed in ED due to difficulty in getting peripheral IV. Patient given 3 boluses IV fluids. There was concern for acute adrenal crisis due to hyponatremia and hyperkalemia, patient given 100 mg hydrocortisone in ED. 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 CT lumbar spine was negative, orthpedics recommended PT and follow up as out-patient. Patient has been working with PT in-patient and will benefit from further in-patient rehab, she is educated extensively on co- operation with her therapists Her blood pressure has been stable and she has been transitioned to oral steroids. Her MAP is persistently over 65. Blood and Urine cultures were negative, however, patient completed a full course of IV antibiotics She is seen and evaluated at bedside this morning, no new complains She is medically ready for transfer to SNF We will establish PCP follow up prior to discharge and PCP to refer patient to endocrinology for better management Plan of care discussed, verbalized understanding - Time Spent with Patient Total time spent providing and/or coordinating discharge services: Greater than 30 minutes (50 minutes spent on chart review, face to face encounter, med rec and prescription as well as documentatio and patient education) - Constitutional Vitals: Temp Pulse Resp BP Pulse Ox 98.2 F 71 18 92/60 98 10/09/17 08:37 10/09/17 08:37 10/09/17 08:37 10/09/17 08:37 10/09/17 08:37 General appearance: Present: A&O X 3, no acute distress - Head Head exam: Present: atraumatic, normocephalic - Eye Eye exam: Present: PERRL, conjuntiva pink, sclera anicteric Pupils: Present: PERRL - Neck Neck exam general surgery: Present: supple, trachea midline. Absent: lymphadenopathy - Respiratory Respiratory exam: Present: CTAB. Absent: accessory muscle use, rales, rhonchi, wheezes - Cardiovascular Cardiovascular exam: Present: RRR, +S1, +S2. Absent: diastolic murmur, gallop, rubs, systolic murmur - GI/Abdominal GI/Abdominal exam: Present: normal bowel sounds, soft, no peritoneal signs. Absent: distended, tenderness - Extremities Exam Extremities exam: Present: warm, radial pulses palpable and symmetrical. Absent : calf tenderness, cyanotic, pedal edema Additional comments: contracted , BLE, dependent edema. - Neurological Exam Neurological exam: Present: alert, CN II-XII intact, oriented X3, no focal deficits. Absent: pronater drift, facial droop, speech deficit - Skin Skin exam: Present: dry, intact
== END 2017-10-09 11:18 | DRG 871 ==
LOC: EMEROO 14:49 → ICNU 20:22 → SUATTDRO 20:22 → ICNU 20:40 → 3ANU 10-02 16:38 → UNDODISIN 10-09 10:39
PROVIDERS: ADMIT Hospitalist; ATTEND Internal Medicine

== ENCOUNTER 2017-11-15 14:37 | Inpatient (IN) ==
[2017-11-15] MEDS ORDERED: 0.9 % Sodium Chloride 1,000 ML IVC ONE ×2 (14:41→21:27)
--- NOTE | 2017-11-15 14:49 | Emergency Department Note ---
Disposition Clinical Impression: Adrenal insufficiency Nausea & vomiting Qualifiers: Vomiting type: unspecified Vomiting Intractability: unspecified Qualified Code( s): R11.2 - Nausea with vomiting, unspecified UTI (urinary tract infection) Qualifiers: Urinary tract infection type: acute cystitis Hematuria presence: without hematuria Qualified Code(s): N30.00 - Acute cystitis without hematuria Disposition: Admitted As Inpatient Condition: Fair Referrals: NONE,PCP [Primary Care Provider] - Forms: ED Satisfaction Letter Time of Disposition: 16:57 Nausea/Vomiting/Diarrhea HPI - General Chief complaint: ED Nausea/Vomiting/Diarrhea Stated complaint: N/V x5 days Time Seen by Provider: 11/15/17 14:41 Source: patient, EMS Mode of arrival: ambulatory Limitations: no limitations Nursing Notes Reviewed: Yes Vital Signs Reviewed: Yes - History of Present Illness HPI Narrative: 57-year-old who comes in with adrenal insufficiency nausea vomiting not able to keep anything down. Pt Subjective Complaint: nausea, vomiting, diarrhea Onset (ago): Just BELT PICKER Description of emesis: food contents Severity: moderate - Related Data Previous Rx's Medication Instructions Recorded Baclofen [Lioresal] 5 mg PO TID tablet 10/09/17 Docusate [Colace] 100 mg PO DAILY PRN capsule 10/09/17 Famotidine [Pepcid] 20 mg PO BID tablet 10/09/17 Fludrocortisone Acetate [Florinef] 0.1 mg PO DAILY tablet 10/09/17 HYDROcodone/Acet 5/325 mg [[place] 1 tab PO Q6HR PRN #20 tablet 10/09/17 5-325 mg] Hydrocortisone [Cortef] 10 mg PO BID tablet 10/09/17 Levothyroxine [Synthroid] 25 mcg PO DAILY@0630 tablet 10/09/17 Nystatin Cream [Mycostatin Cream] 1 appl TP TID tube 10/09/17 Temazepam [Restoril] 15 mg PO HS PRN capsule 10/09/17 Allergies Allergy/AdvReac Type Severity Reaction Status Date / Time morphine AdvReac Rash Verified 09/30/17 17:53 All systems ED: reviewed and negative except as stated. Constitutional: Denies: fever, chills, weakness, weight change Eyes: Denies: eye pain, eye discharge, vision change ENT ED: Denies: ear pain, throat pain, dental pain, hearing loss, epistaxis, congestion, dysphagia Cardiovascular: Denies: chest pain, palpitations, dyspnea on exertion, edema, syncope Respiratory: Denies: cough, dyspnea, wheezes, hemoptysis, stridor Gastrointestinal: Denies: abdominal pain, nausea, vomiting, diarrhea, constipation, hematemesis, melena, hematochezia Genitourinary: Denies: dysuria, frequency, hematuria, discharge Musculoskeletal: Denies: back pain, neck pain, arthralgia, myalgia Integumentary: Denies: rash, abrasion, lesions Neurological: Denies: headache, weakness, numbness, paresthesias, confusion, abnormal gait, vertigo Psychiatric: Denies: anxiety, depression, suicidal thoughts, homicidal thoughts , auditory hallucinations, visual hallucinations Endocrine: Denies: fatigue Hematological/Lymphatic: Denies: easy bleeding, easy bruising Allergic/Immunologic: Denies: facial swelling, urticaria Past Medical History - Past Medical History Medical history: Reports: cancer Surgical history: Reports: orthopedic, other Psychiatric history: Reports: no psych history - Social History Smoking Status: Former smoker Smokeless Tobacco Status: Yes (vapor) Alcohol use: Reports: none Drug use: Reports: none Physical Exam - General Limitations: no limitations General appearance: alert, in no apparent distress Course - Reevaluation(s) Reevaluation #1: 57-year-old with a history of adrenal insufficiencies had nausea vomiting for the last couple of days unable to keep her medicines down. He denies pain anywhere. She denies fever. Workup included a sodium 127. Patient was given hydrocortisone here in the emergency department. Patient will be admitted as she is not able to keep her medications down. The patient's white count is elevated at 16,000+. Time: 16:55 Vital Signs Temperature 98.5 F 11/15/17 14:39 Pulse Rate 108 11/15/17 14:39 Respiratory Rate 18 11/15/17 14:39 Blood Pressure 108/66 11/15/17 14:39 O2 Sat by Pulse Oximetry 93 11/15/17 14:39 Temperature 98.5 F 11/15/17 14:39 Pulse Rate 97 11/15/17 17:32 Respiratory Rate 16 11/15/17 17:32 Blood Pressure 121/67 11/15/17 17:32 O2 Sat by Pulse Oximetry 93 11/15/17 17:32 Oxygen Delivery Oxygen Delivery Room Air Nausea/Vomiting/Diarrhea - Lab Data Result diagrams: 11/15/17 15:58 11/15/17 15:58 Lab Results 11/15/17 11/15/17 11/15/17 Range/Units 15:58 15:58 15:58 WBC 16.6 H (4.3-11.1) K/mcL RBC 4.33 (3.82-4.97) M/mcL Hgb 12.0 (11.5-15.4) g/dL Hct 36.6 (35.3-44.9) % MCV 84.5 (83.0-100.0) fL MCH 27.7 L (28.0-33.3) pg MCHC 32.8 (31.6-35.5) g/dL RDW 13.2 (11.5-14.5) % Plt Count 356 (140-400) K/mcL MPV 9.3 L (9.4-12.4) fL Immature Gran % 0.5 (0-4) % Seg Neutrophils % 78.5 % Lymphocytes % 10.5 % Monocytes % 8.4 % Eosinophils % 1.7 % Basophils % 0.4 % Neutrophils # 13.1 H (1.6-8.9) K/mcL Lymphocytes # 1.8 (0.6-4.6) K/mcL Monocytes # 1.4 H (0.0-1.3) K/mcL Eosinophils # 0.3 (0.0-0.6) K/mcL Basophils # 0.1 (0.0-0.2) K/mcL Sodium 127 L (136-145) mEq/L Potassium 3.2 L (3.5-5.1) mEq/L Chloride 93 L (98-107) mEq/L Carbon Dioxide 24 (23-29) mEq/L BUN 9 (6-20) mg/dL Creatinine 0.24 L (0.60-1.20) mg/dL Est GFR ( Amer) > 60 (> 60) Est GFR (Non-Af Amer) > 60 (> 60) BUN/Creatinine Ratio 38 H (6-26) Glucose 94 (70-105) mg/dL Calculated Osmolality 262 L (280-300) Lactic Acid (0.5-2.2) mmol/L Calcium 9.1 (8.6-10.3) mg/dL Total Bilirubin 0.7 (0.3-1.0) mg/dL Direct Bilirubin 0.2 (0.0-0.2) mg/dL Indirect Bilirubin 0.5 (0.0-1.2) mg/dL AST 13 (13-39) Units/L ALT 6 L (7-52) Units/L Alkaline Phosphatase 69 (34-104) Units/L Serum Total Protein 6.3 L (6.4-8.9) g/dL Albumin 2.9 L (3.5-5.7) g/dL Globulin 3.4 (2.4-3.5) g/dL Albumin/Globulin Ratio 0.9 L (1.1-2.2) Amylase 22 L (29-103) Units/L Lipase < 3 L (11-82) Units/L Urine Color (Yellow) Urine Clarity (Clear) Urine pH (5.0-8.0) pH Units Ur Specific [place] (1.010-1.025) Urine Protein (Neg-Trace) mg/dL Urine Glucose (UA) (Normal) mg/dL Urine Ketones (Negative) mg/dL Urine Blood (Negative) Urine Nitrite (Negative) Urine Bilirubin (Negative) Urine Urobilinogen (Normal) mg/dL Ur Leukocyte Esterase (Negative) 11/15/17 11/15/17 Range/Units 16:59 17:30 WBC (4.3-11.1) K/mcL RBC (3.82-4.97) M/mcL Hgb (11.5-15.4) g/dL Hct (35.3-44.9) % MCV (83.0-100.0) fL MCH (28.0-33.3) pg MCHC (31.6-35.5) g/dL RDW (11.5-14.5) % Plt Count (140-400) K/mcL MPV (9.4-12.4) fL Immature Gran % (0-4) % Seg Neutrophils % % Lymphocytes % % Monocytes % % Eosinophils % % Basophils % % Neutrophils # (1.6-8.9) K/mcL Lymphocytes # (0.6-4.6) K/mcL Monocytes # (0.0-1.3) K/mcL Eosinophils # (0.0-0.6) K/mcL Basophils # (0.0-0.2) K/mcL Sodium (136-145) mEq/L Potassium (3.5-5.1) mEq/L Chloride (98-107) mEq/L Carbon Dioxide (23-29) mEq/L BUN (6-20) mg/dL Creatinine (0.60-1.20) mg/dL Est GFR ( Amer) (> 60) Est GFR (Non-Af Amer) (> 60) BUN/Creatinine Ratio (6-26) Glucose (70-105) mg/dL Calculated Osmolality (280-300) Lactic Acid 0.7 (0.5-2.2) mmol/L Calcium (8.6-10.3) mg/dL Total Bilirubin (0.3-1.0) mg/dL Direct Bilirubin (0.0-0.2) mg/dL Indirect Bilirubin (0.0-1.2) mg/dL AST (13-39) Units/L ALT (7-52) Units/L Alkaline Phosphatase (34-104) Units/L Serum Total Protein (6.4-8.9) g/dL Albumin (3.5-5.7) g/dL Globulin (2.4-3.5) g/dL Albumin/Globulin Ratio (1.1-2.2) Amylase (29-103) Units/L Lipase (11-82) Units/L Urine Color Dark Yellow (Yellow) Urine Clarity Turbid A (Clear) Urine pH 6.0 (5.0-8.0) pH Units Ur Specific [place] 1.027 H (1.010-1.025) Urine Protein 30 H (Neg-Trace) mg/dL Urine Glucose (UA) Normal (Normal) mg/dL Urine Ketones 80 H (Negative) mg/dL Urine Blood Moderate H (Negative) Urine Nitrite Negative (Negative) Urine Bilirubin Small H (Negative) Urine Urobilinogen 4.0 H (Normal) mg/dL Ur Leukocyte Esterase Large H (Negative)
[2017-11-15 16:08] LABS: Basophils # 0.1 K/mcL (0.0-0.2); Basophils % 0.4 %; Eosinophils # 0.3 K/mcL (0.0-0.6); Eosinophils % 1.7 %; Hematocrit 36.6 % (35.3-44.9); Immature Granulocytes % 0.5 % (0-4); Lymphocytes # 1.8 K/mcL (0.6-4.6); Lymphocytes % 10.5 %; Mean Corpuscular HGB Conc 32.8 g/dL (31.6-35.5); Mean Corpuscular Hemoglobin 27.7 pg (28.0-33.3); Mean Corpuscular Volume 84.5 fL (83.0-100.0); Mean Platelet Volume 9.3 fL (9.4-12.4); Monocytes # 1.4 K/mcL (0.0-1.3); Monocytes % 8.4 %; Neutrophils # 13.1 K/mcL (1.6-8.9); Platelet Count 356 K/mcL (140-400); Red Blood Count 4.33 M/mcL (3.82-4.97); Red Cell Distribution Width 13.2 % (11.5-14.5); Segmented Neutrophils % 78.5 %
[2017-11-15 16:20] LABS: Albumin 2.9 g/dL (3.5-5.7); Albumin/Globulin Ratio 0.9 (1.1-2.2); Bilirubin,Direct 0.2 mg/dL (0.0-0.2); Bilirubin,Indirect 0.5 mg/dL (0.0-1.2); Bilirubin,Total 0.7 mg/dL (0.3-1.0); Globulin 3.4 g/dL (2.4-3.5); Total Protein 6.3 g/dL (6.4-8.9)
[2017-11-15 16:23] LABS: BUN/Creatinine Ratio 38 (6-26); Blood Urea Nitrogen 9 mg/dL (6-20); Calcium 9.1 mg/dL (8.6-10.3); Carbon Dioxide 24 mEq/L (23-29); Chloride 93 mEq/L (98-107); Glucose 94 mg/dL (70-105); Lipase < 3 Units/L (11-82); Osmolality,Calculated 262 (280-300); Potassium 3.2 mEq/L (3.5-5.1); Sodium 127 mEq/L (136-145); eGFR For African Americans > 60 (> 60); eGFR For Non-African Americans > 60 (> 60)
[2017-11-15] MEDS ORDERED: Ondansetron 4 MG/2 ML VIAL IVP ONE (16:38)
[2017-11-15] MEDS ORDERED: *HR* HYDROmorphone (PF) 1 MG/ML SYRINGE IVP ONE (16:38)
[2017-11-15] MEDS ORDERED: Hydrocortisone Sodium Succ 100 MG/2 ML VIAL IVP ONE (16:38)
[2017-11-15 17:35] LABS: Bilirubin,Urine Small (Negative); Blood,Urine Moderate (Negative); Clarity,Urine Turbid (Clear); Color,Urine Dark Yellow (Yellow); Glucose,Urine (UA) Normal (Normal); Ketones,Urine 80 mg/dL (Negative); Leukocyte Esterase,Urine Large (Negative); Nitrite,Urine Negative (Negative); Protein,Urine 30 mg/dL (Neg-Trace); Specific Gravity,Urine 1.027 (1.010-1.025)
[2017-11-15 17:37] LABS: WBC,Urine TNTC per hpf (0-3)
[2017-11-15] MEDS ORDERED: cefTRIAXone 1,000 MG in Water for inj. (sterile) 20 ML 10 ML IVP ONE (17:46)
[2017-11-15 17:54] LABS: Bacteria,Urine Moderate per hpf (None-Few); RBC,Urine TNTC per hpf (0-3); Squamous Epithelial Cell,Urine Few per lpf (None-Few)
[2017-11-15] MEDS ORDERED: Naloxone 0.4 MG/ML INJ IVP PRN (20:52)
[2017-11-15] MEDS ORDERED: MOM Conc 10 ML UD.LIQ PO PRN (20:52)
[2017-11-15] MEDS ORDERED: Temazepam 15 MG CAPSULE PO PRN (20:53)
[2017-11-15] MEDS ORDERED: Ondansetron 4 MG/2 ML VIAL IVP PRN (20:54)
--- NOTE | 2017-11-15 21:12 | Internal Med History&Physical ---
Addendum entered and electronically signed by Osmar Giles DO 11/15/17 23: 03: Addendum for ROS/PE Review of Systems: CONSTITUTIONAL: Admits to fever and chills, as well as night sweats HEENT: Admits to sore throat x7d SKIN: No rash or itching. CARDIOVASCULAR: No chest pain, chest pressure or chest discomfort. No palpitations or edema. RESPIRATORY: No shortness of breath, cough or sputum. GASTROINTESTINAL: Admits to nausea/vomiting. No abdominal pain or blood. GENITOURINARY: Denies burning or frequency. Patient is incontinent. NEUROLOGICAL: No headache, dizziness, syncope, paralysis, ataxia, numbness or tingling in the extremities. No change in bowel or bladder control. MUSCULOSKELETAL: Chronic b/l leg pain that is diffuse and constant HEMATOLOGIC: No anemia, bleeding or bruising. PSYCHIATRIC: Admits to anxiety ENDOCRINOLOGIC: No reports of sweating, cold or heat intolerance. No polyuria or polydipsia. Physical Exam Gen.: Vitals noted. No acute distress. AAOx3 HEENT: oropharynx demonstrates white material in teeth and patchy tongue consistent with thrush, Normocephalic, atraumatic Neck: Supple. No adenopathy. Cardiac: RRR, no murmur, +S1/S2 Pulmonary: CTA bilaterally, no wheezes, rales or rhonchi, equal chest expansion Abdomen: soft, nontender, BS noted, no guarding Extremities: +1 b/l LE edema. Tenderness to palpation of b/l LE Neuro: A&Ox3, moves all extremities, generalized weakness and deconditioning, weakness in left UE which is chronic Psych: Flat affect Original Note: <Osmar Giles - Last Filed: 11/15/17 22:48> Date of Encounter: 11/15/17 Time of Encounter: 20:57 Assessment and Plan (1) Adrenal insufficiency Current visit: Yes Status: Acute Adrenal insufficiency, not currently in crisis Patient presents in hyponatremic state with severe nausea vomiting She has not taken meds in 2-3 days Possibly exacerbated by acute complicated UTI Currently vitals remain stable, however she has shown a drop in BP since arriving here Plan: Monitor closely - cardiac specialist, q1h vital signs 100mg IV Hydrocotisone q6h, continue fludrocortisone Recieved 1L bolus in ED. 1L bolus now, then 150mls/hr 0.9ns w/ 20mEQ K+ Consider transfer to the ICU as needed for hypotensive crisis (2) UTI (urinary tract infection) Current visit: Yes Status: Acute Acute cystitis with hematuria, culture pending Not currently demonstrating signs of sepsis Continue rocephin + IVF Qualifiers: Urinary tract infection type: acute cystitis Hematuria presence: with hematuria Qualified Code(s): N30.01 - Acute cystitis with hematuria (3) Nausea & vomiting Current visit: Yes Status: Acute IV Hydration Zofran + phenergan for nausea PRN Qualifiers: Vomiting type: unspecified Vomiting Intractability: intractable Qualified Code(s): R11.2 - Nausea with vomiting, unspecified (4) Hypothyroidism (acquired) Current visit: No Status: Chronic Continue synthroid (5) Physical deconditioning Current visit: Yes Status: Chronic Patient is generally bed-ridden due to deconditioning Complains of chronic severe leg pain We will treat pain, and request a PT/OT consult (6) DVT prophylaxis Current visit: No Status: Acute sq heparin Internal Medicine - H&P: HPI Chief complaint: Nausea and vomiting Admitted From: Emergency Dept Plans for Post Hospital Care: Transfer [facility] History of present illness: Ms. Yennifer Calvo is a 57 year old female with history of adrenal insufficiency, hypothyroidism, and frequent UTIs who presented to the ED with 2-3d history of intractable nausea and vomiting. She says that she has had no appetite for about three days, and she has not been able to hold any food or liquid down for 2 days, including for medications. She does admit that this initially started with what she describes as a sore throat approximately 5 days ago. In addition to this, she's noticed fevers and sweats that occur primarily over night. She claims this has never happened before. She is not having any chest pains or shortness of breath. She also has not had any abdominal pain. She says that she is urinary incontinent at baseline, and has not noticed any significant changes in relation to the use of her incontinence products. She has no other acute complaints. Past Med Surg Social Fam HX - Past Medical History Medical history: cancer Psychiatric history: no psych history - Past Surgical History Surgical History: orthopedic, other - Social History Smoking Status: Former smoker Smokeless Tobacco Status: Yes (vapor) Alcohol use: none Drug use: none - Family History Father Hx Family Cardiac Disorders: Yes (NE) Mother Hx Family Cancer: Yes (breast and lung cancers) Brother Hx Family Cardiac Disorders: Yes (NE) Internal Medicine - H&P: Meds Baclofen [Lioresal] 5 mg PO TID tablet 10/09/17 [Rx] Docusate [Colace] 100 mg PO DAILY PRN capsule 10/09/17 [Rx] Famotidine [Pepcid] 20 mg PO BID tablet 10/09/17 [Rx] Fludrocortisone Acetate [Florinef] 0.1 mg PO DAILY tablet 10/09/17 [Rx] HYDROcodone/Acet 5/325 mg [[place] 5-325 mg] 1 tab PO Q6HR PRN #20 tablet [Rx] Hydrocortisone [Cortef] 10 mg PO BID tablet 10/09/17 [Rx] Levothyroxine [Synthroid] 25 mcg PO DAILY@0630 tablet 10/09/17 [Rx] Nystatin Cream [Mycostatin Cream] 1 appl TP TID tube 10/09/17 [Rx] Temazepam [Restoril] 15 mg PO HS PRN capsule 10/09/17 [Rx] 3 Allergy/AdvReac Type Severity Reaction Status Date / Time morphine AdvReac Rash Verified 09/30/17 17:53 All Systems PM: A 10-system review of systems was performed and is negative for pertinent findings except as documented above in the HPI. - Constitutional Vitals: Temp Pulse Resp BP Pulse Ox 97.9 F 96 17 99/64 92 11/15/17 20:08 11/15/17 20:08 11/15/17 20:08 11/15/17 20:08 11/15/17 20:08 Internal Med - H&P Results - Labs CBC & Chem 7: 11/15/17 15:58 11/15/17 15:58 <Joe Casarez - Last Filed: 11/16/17 00:48> Date of Encounter: 11/15/17 Time of Encounter: 22:45 - Constitutional Constitutional: fever(s), no chills - EENT Eyes: no blurry vision, no change in vision Nose, mouth and throat: no nasal congestion, no sore throat - Cardiovascular Cardiovascular ROS IM: no chest pain, no dyspnea - Respiratory Respiratory: no cough, no dyspnea, no chest congestion - Gastrointestinal Gastrointestinal: diarrhea, nausea, vomiting, no abdominal pain - Genitourinary Genitourinary: urinary frequency, no dysuria, no hematuria - Musculoskeletal Musculoskeletal ROS IM: muscle cramps, muscle weakness - Integumentary Integumentary IM: no rash, no jaundice - Neurological Neurological ROS: no focal weakness - Psychiatric Psychiatric: no anxiety, no depression - Endocrine Endocrine IM: no polydipsia, no polyuria - Allergic/Immunologic Allergic/Immunologic: no GI upset with certain foods - Constitutional Vitals: Temp Pulse Resp BP Pulse Ox 98.4 F 99 18 92/55 94 11/15/17 23:00 11/15/17 23:57 11/15/17 23:57 11/15/17 23:57 11/15/17 23:57 General appearance: Present: cooperative, A&O X 3, answers questions appropriately Exam: looks dry - Head Head exam: Present: atraumatic, normal inspection - Eye Eye exam: Present: EOMI, PERRL. Absent: scleral icterus Pupils: Present: normal accommodation - ENT ENT exam: Present: mucous membranes dry, normal exam Additional comments: grinding teeth -- loss of enamel - Neck Neck exam general surgery: Present: full ROM, supple. Absent: tenderness - Respiratory Respiratory exam: Present: CTAB. Absent: rales, rhonchi, wheezes - Cardiovascular Cardiovascular exam: Present: RRR, +S1, +S2 - GI/Abdominal GI/Abdominal exam: Present: normal bowel sounds, soft. Absent: hepatomegaly, splenomegaly, tenderness - Psychiatric Psychiatric exam: Present: flat affect - Skin Skin exam: Present: dry, warm. Absent: rash Internal Med - H&P Results - Labs CBC & Chem 7: 11/15/17 15:58 11/15/17 15:58 - Attending Attestation I discussed the patient [place], PMH, ROS, lab data, and exam findings with Dr. Giles. I then saw and examined patient independently as well. Patient looks dry but otherwise appears in no distress. She admits to missing doses of her steroids the last 2 days. 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 She received a dose of Solu- Cortef in the ER. We will aggressively hydrate her, continue Solu-Cortef at stress doses, resume her Florinef, and treat her UTI. Should she become hemodynamically unstable, she may need to transfer to 2N or ICU for hemodyamic support. However, at the present time, she is not in crisis and remains stable hemodynamically. We will order frequent vitals and I asked her nurse to monitor patient closely. Other than my comments above and noted exam findings, I agree with Dr. Giles' s assessment and plan.
[2017-11-15] MEDS ORDERED: 0.9 % Sodium Chloride 1,000 ML IVC SCH (21:15)
[2017-11-15] MEDS: Baclofen 10 MG TABLET PO SCH (21:57)
[2017-11-15] MEDS: Hydrocortisone Sodium Succ 100 MG/2 ML VIAL IVP SCH (22:17)
[2017-11-15] MEDS: 0.9 % Sodium Chloride w KCl 20 MEQ/1,000 ML MLS IVC SCH (23:00)
[2017-11-15] MEDS: Nystatin Cream 15 GM TUBE TP SCH (23:04)
[2017-11-16] MEDS: Hydrocortisone Sodium Succ 100 MG/2 ML VIAL IVP SCH ×5 (00:41→23:58)
[2017-11-16 03:48] LABS: Basophils % 0.1 %; Hematocrit 34.5 % (35.3-44.9); Hemoglobin 11.1 g/dL (11.5-15.4); Immature Granulocytes % 0.6 % (0-4); Lymphocytes # 0.6 K/mcL (0.6-4.6); Mean Corpuscular HGB Conc 32.2 g/dL (31.6-35.5); Mean Corpuscular Hemoglobin 27.4 pg (28.0-33.3); Mean Corpuscular Volume 85.2 fL (83.0-100.0); Mean Platelet Volume 9.9 fL (9.4-12.4); Monocytes # 0.1 K/mcL (0.0-1.3); Monocytes % 1.3 %; Neutrophils # 8.5 K/mcL (1.6-8.9); Platelet Count 354 K/mcL (140-400); Red Blood Count 4.05 M/mcL (3.82-4.97); Red Cell Distribution Width 12.9 % (11.5-14.5)
[2017-11-16 04:04] LABS: BUN/Creatinine Ratio 35 (6-26); Blood Urea Nitrogen 8 mg/dL (6-20); Calcium 8.6 mg/dL (8.6-10.3); Carbon Dioxide 23 mEq/L (23-29); Chloride 103 mEq/L (98-107); Glucose 116 mg/dL (70-105); Magnesium 1.8 mg/dL (1.6-2.6); Osmolality,Calculated 281 (280-300); Potassium 3.7 mEq/L (3.5-5.1); Sodium 136 mEq/L (136-145); eGFR For African Americans > 60 (> 60); eGFR For Non-African Americans > 60 (> 60)
[2017-11-16] MEDS: *HR* Heparin 5,000 UNIT/ML VIAL SQ SCH ×2 (06:01→18:31)
[2017-11-16] MEDS: 0.9 % Sodium Chloride w KCl 20 MEQ/1,000 ML MLS IVC SCH ×3 (06:01→18:32)
[2017-11-16] MEDS: Levothyroxine 25 MCG TABLET PO SCH (06:02)
[2017-11-16] MEDS: *HR* HYDROcodone/Acet 5/325 mg TABLET PO PRN ×2 (09:01→16:29)
[2017-11-16] MEDS: Baclofen 10 MG TABLET PO SCH ×3 (09:01→21:04)
[2017-11-16] MEDS: Nystatin Cream 15 GM TUBE TP SCH ×3 (09:02→21:06)
--- NOTE | 2017-11-16 12:12 | Internal Med Progress Note ---
Date of Encounter: 11/16/17 Time of Encounter: 10:25 - Assessment and plan (1) Adrenal insufficiency Current Visit: Yes Status: Acute Assessment and plan: Chronic history of renal insufficiency. Patient presented to emergency department after nausea and vomiting for 2 days, found to be hyponatremic. She was unable to keep any of her medications down. Currently her vital signs are stable, her mentation is clear. She is pleasant alert and engaging. She had episodes of hypotension, vital signs are being monitored every hour and she is being monitored closely. Continue telemetry and 1 hour vital signs Hydrocortisone 100 mg IV every 6 hours and fludrocortisone Patient received 1 L fluid bolus the emergency department, received another bolus on the floor, maintenance fluids at 150 ML's per hour Continue to monitor labs. (2) Hypothyroidism (acquired) Current Visit: Yes Status: Chronic Assessment and plan: Chronic. Maintain Synthroid dose. (3) Physical deconditioning Current Visit: Yes Status: Chronic Assessment and plan: Patient reports that she stopped walking 3-4 months ago due to weakness. She said over time she was not able to stand anymore. Unclear etiology of the weakness. She reports that she has seen multiple physicians, including neurology without diagnosis. Patient currently resides at [facility] and is receiving physical therapy and occupational therapy there. PT OT consultation. (4) Nausea & vomiting Current Visit: Yes Status: Acute Assessment and plan: Currently denies nausea or vomiting. Continue anti-emetics as needed, continue IV fluid hydration. 2-D history of nausea vomiting prior to arrival, mild hypokalemia which was corrected. Renal function is at baseline. Qualifiers: Vomiting type: unspecified Vomiting Intractability: intractable Qualified Code(s): R11.2 - Nausea with vomiting, unspecified (5) UTI (urinary tract infection) Current Visit: Yes Status: Acute Assessment and plan: Continue Rocephin. Urine culture is pending. Narrow antibiotics with sensitivity results. Patient denies any symptoms. Qualifiers: Urinary tract infection type: acute cystitis Hematuria presence: with hematuria Qualified Code(s): N30.01 - Acute cystitis with hematuria (6) DVT prophylaxis Current Visit: Yes Status: Acute Assessment and plan: Heparin subcutaneous every 12 hours. - Time Spent With Patient less than 15 minutes - Subjective Interval history: Patient was seen and assessed at 10:25 AM. She is alert and oriented, answers questions appropriately. Reports nausea and vomiting for 2 days, could not keep any medications down. She reports intermittent fever 1 week that was relieved with Tylenol Motrin. Nausea has improved. She denies headache, blurred vision or dizziness. No abdominal pain or diarrhea. No chest pain or shortness of breath. - Constitutional Vitals: Temp Pulse Resp BP Pulse Ox 98.4 F 77 17 99/67 94 11/16/17 07:58 11/16/17 07:58 11/16/17 07:58 11/16/17 07:58 11/16/17 07:58 General appearance: Present: cooperative, A&O X 3, pleasant, no acute distress, answers questions appropriately - Head Head exam: Present: atraumatic, normal inspection, normocephalic - Eye Eye exam: Present: normal appearance, conjuntiva pink, sclera anicteric - Neck Neck exam general surgery: Present: supple, trachea midline. Absent: lymphadenopathy, tenderness - Respiratory Respiratory exam: Present: CTAB. Absent: accessory muscle use, rales, rhonchi, wheezes - Cardiovascular Cardiovascular exam: Present: RRR, +S1, +S2. Absent: diastolic murmur, gallop, rubs, systolic murmur - GI/Abdominal GI/Abdominal exam: Present: hepatomegaly, normal bowel sounds, soft. Absent: distended, tenderness - Extremities Exam Extremities exam: Present: normal capillary refill, normal inspection, warm, radial pulses palpable and symmetrical. Absent: calf tenderness, cyanotic, pedal edema, tenderness - Neurological Exam Neurological exam: Present: alert, oriented X3, no focal deficits. Absent: altered, facial droop, speech deficit - Skin Skin exam: Present: dry, intact, normal color, warm. Absent: rash Internal Medicine: Result - Labs CBC & Chem 7: 11/16/17 03:03 11/16/17 03:03 Consult Discharge Plan - Plan Referrals: NONE,PCP [Primary Care Provider] -
[2017-11-16] MEDS: cefTRIAXone 1,000 MG in Water for inj. (sterile) 20 ML 10 ML IVP SCH (18:32)
[2017-11-17] MEDS: 0.9 % Sodium Chloride w KCl 20 MEQ/1,000 ML MLS IVC SCH ×4 (01:47→23:01)
[2017-11-17] MEDS: Levothyroxine 25 MCG TABLET PO SCH (05:23)
[2017-11-17] MEDS: Hydrocortisone Sodium Succ 100 MG/2 ML VIAL IVP SCH ×4 (05:23→17:55)
[2017-11-17] MEDS: *HR* Heparin 5,000 UNIT/ML VIAL SQ SCH ×2 (05:23→17:54)
[2017-11-17] MEDS: Baclofen 10 MG TABLET PO SCH ×3 (08:06→20:33)
[2017-11-17] MEDS: Nystatin Cream 15 GM TUBE TP SCH ×3 (08:07→20:31)
[2017-11-17] MEDS: *HR* HYDROcodone/Acet 5/325 mg TABLET PO PRN (08:07)
--- NOTE | 2017-11-17 12:17 | Internal Med Progress Note ---
Date of Encounter: 11/17/17 Time of Encounter: 08:55 - Assessment and plan (1) Adrenal insufficiency Current Visit: Yes Status: Acute Assessment and plan: Chronic renal insufficiency. N/V have resolved, pt able to eat breakfast without incident. Currently her vital signs are stable, her mentation is clear. Vitals are being monitored closely. Continue telemetry Hydrocortisone 100 mg IV every 6 hours and fludrocortisone Maintenance IVF. Continue to monitor labs. (2) Hypothyroidism (acquired) Current Visit: Yes Status: Chronic Assessment and plan: Chronic. Maintain Synthroid dose. Follow with PCP after discharge for monitoring. (3) Physical deconditioning Current Visit: Yes Status: Chronic Assessment and plan: Patient reports that she stopped walking 3-4 months ago due to weakness. She said over time she was not able to stand anymore. Unclear etiology of the weakness. She reports that she has seen multiple physicians, including neurology without diagnosis. She was seen by ortho here 10/12, placed in [facility] for PT. Patient currently resides at [facility] and is receiving physical therapy and occupational therapy there. PT OT consultation. (4) Nausea & vomiting Current Visit: Yes Status: Acute Assessment and plan: Currently denies nausea or vomiting. Continue anti-emetics as needed, continue IV fluid hydration. Mild hypokalemia which was corrected. Renal function is at baseline. Qualifiers: Vomiting type: unspecified Vomiting Intractability: intractable Qualified Code(s): R11.2 - Nausea with vomiting, unspecified (5) UTI (urinary tract infection) Current Visit: Yes Status: Acute Assessment and plan: Continue Rocephin. Preliminary culture GNR. Continue Rocephin. Narrow antibiotics with sensitivity results. Patient denies any symptoms. Qualifiers: Urinary tract infection type: acute cystitis Hematuria presence: with hematuria Qualified Code(s): N30.01 - Acute cystitis with hematuria (6) DVT prophylaxis Current Visit: Yes Status: Acute Assessment and plan: Heparin subcutaneous every 12 hours. - Time Spent With Patient less than 15 minutes - Subjective Interval history: Patient was seen and assessed at 0855 AM. She is alert and oriented, answers questions appropriately. She was sitting up in the bed eating breakfast without difficulty. Patient appeared to be frustrated today due to no chronic leg pain and unable to get comfortable in the bed. Nurse and I both worked to get her comfortable. Discussed with her plan of care regarding staying for IV antibiotics and monitoring for sensitivity, she was agreeable. She reports prior UTI in October that she believes was not fully treated. She denies headache, nausea, vomiting, abdominal pain, dizziness or abdominal pain. No chest pain or shortness of breath. - Constitutional Vitals: Temp Pulse Resp BP Pulse Ox 97.7 F 68 16 108/71 95 11/17/17 11:03 11/17/17 11:03 11/17/17 11:03 11/17/17 11:03 11/17/17 11:03 General appearance: Present: cooperative, A&O X 3, pleasant, no acute distress, answers questions appropriately - Head Head exam: Present: atraumatic, normal inspection, normocephalic - Eye Eye exam: Present: normal appearance, conjuntiva pink, sclera anicteric - Neck Neck exam general surgery: Present: supple, trachea midline. Absent: lymphadenopathy - Respiratory Respiratory exam: Present: CTAB. Absent: accessory muscle use, rales, respiratory distress, rhonchi, wheezes - Cardiovascular Cardiovascular exam: Present: RRR, +S1, +S2. Absent: diastolic murmur, gallop, rubs, systolic murmur - GI/Abdominal GI/Abdominal exam: Present: normal bowel sounds, soft. Absent: distended, hepatomegaly, tenderness - Extremities Exam Extremities exam: Present: pedal edema, warm, radial pulses palpable and symmetrical. Absent: calf tenderness, cyanotic, normal inspection, tenderness - Neurological Exam Neurological exam: Present: alert, oriented X3, no focal deficits. Absent: normal gait, facial droop, speech deficit - Skin Skin exam: Present: dry, intact, normal color, warm. Absent: rash Internal Medicine: Result - Labs CBC & Chem 7: 11/16/17 03:03 11/16/17 03:03 Consult Discharge Plan - Plan Referrals: NONE,PCP [Primary Care Provider] -
[2017-11-17] MEDS: cefTRIAXone 1,000 MG in Water for inj. (sterile) 20 ML 10 ML IVP SCH (17:55)
[2017-11-18] MEDS: Hydrocortisone Sodium Succ 100 MG/2 ML VIAL IVP SCH ×4 (00:41→22:36)
[2017-11-18] MEDS: 0.9 % Sodium Chloride w KCl 20 MEQ/1,000 ML MLS IVC SCH ×4 (02:23→23:35)
[2017-11-18] MEDS: Levothyroxine 25 MCG TABLET PO SCH (05:57)
[2017-11-18] MEDS: *HR* Heparin 5,000 UNIT/ML VIAL SQ SCH ×2 (06:00→18:59)
[2017-11-18 06:35] LABS: Basophils % 0.1 %; Hemoglobin 11.1 g/dL (11.5-15.4); Immature Granulocytes % 0.8 % (0-4); Lymphocytes # 1.1 K/mcL (0.6-4.6); Lymphocytes % 11.8 %; Mean Corpuscular HGB Conc 31.7 g/dL (31.6-35.5); Mean Corpuscular Hemoglobin 27.3 pg (28.0-33.3); Mean Corpuscular Volume 86.2 fL (83.0-100.0); Mean Platelet Volume 10.7 fL (9.4-12.4); Monocytes # 0.5 K/mcL (0.0-1.3); Monocytes % 6.1 %; Neutrophils # 7.2 K/mcL (1.6-8.9); Platelet Count 368 K/mcL (140-400); Red Blood Count 4.06 M/mcL (3.82-4.97); Red Cell Distribution Width 13.5 % (11.5-14.5); Segmented Neutrophils % 81.2 %
[2017-11-18 06:50] LABS: BUN/Creatinine Ratio 20 (6-26); Blood Urea Nitrogen 6 mg/dL (6-20); Calcium 8.7 mg/dL (8.6-10.3); Carbon Dioxide 21 mEq/L (23-29); Chloride 115 mEq/L (98-107); Glucose 162 mg/dL (70-105); Osmolality,Calculated 295 (280-300); Potassium 3.1 mEq/L (3.5-5.1); Sodium 142 mEq/L (136-145); eGFR For African Americans > 60 (> 60); eGFR For Non-African Americans > 60 (> 60)
[2017-11-18] MEDS: Baclofen 10 MG TABLET PO SCH ×3 (09:29→22:36)
[2017-11-18] MEDS: Nystatin Cream 15 GM TUBE TP SCH ×3 (09:31→22:37)
--- NOTE | 2017-11-18 17:35 | Internal Med Progress Note ---
Date of Encounter: 11/18/17 Time of Encounter: 17:33 - Assessment and plan (1) Adrenal insufficiency Current Visit: Yes Status: Acute Assessment and plan: hx chronic adrenal insufficiency. Apparently was having nausea and vomiting at [facility] and unable to take steroids. She was started on high-dose stress steroids on arrival. Continue tapering steroids to home dose. BP stable. (2) UTI (urinary tract infection) Current Visit: No Status: Suspected Assessment and plan: UA indicative of UTI; urine culture with C. freundii; change ATB to cefepime per sensitivity. Qualifiers: Urinary tract infection type: site unspecified Hematuria presence: without hematuria Qualified Code(s): N39.0 - Urinary tract infection, site not specified (3) Hypothyroidism (acquired) Current Visit: Yes Status: Chronic Assessment and plan: per hx. Cont home levothyroxine (4) Physical deconditioning Current Visit: Yes Status: Chronic Assessment and plan: details unclear. Per chart review, patient was admitted 09/2017 and reported being nonambulatory/bedbound for the last 3 months. Was discharged to [facility] in September 2017 and has been there since that time. Unclear etiology of the weakness; reports that she has seen multiple physicians, including neurology without diagnosis. 09/[address] unremarkable. Evaluated by orthopedics during 09/2017 hospitalization who noted bilateral knee flexion contractures and chronic knee pain of unknown etiology. Will look into [facility] records. Continue PT/OT for now. (5) DVT prophylaxis Current Visit: Yes Status: Acute Assessment and plan: Heparin subcutaneous every 12 hours. - Subjective Interval history: Seen and examined at bedside. Patient is new to me, information obtained from chart review and patient report. Says she feels better and would like to discharge activity ECF today. I explained to her the need to decrease her IV steroids and resume home dose of steroids before she can be discharged and she is agreeable to. Continues to have bilateral lower extremity weakness and limited mobility which she says has been present for 3 months. Says she has been evaluated by multiple doctors including neurologist who do not have a diagnosis at this time. - Constitutional Vitals: Temp Pulse Resp BP Pulse Ox 98.2 F 69 18 118/72 94 11/18/17 15:20 11/18/17 15:20 11/18/17 15:20 11/18/17 15:20 11/18/17 15:20 General appearance: Present: cooperative, A&O X 3, pleasant, no acute distress, answers questions appropriately - Head Head exam: Present: atraumatic, normocephalic - Eye Eye exam: Present: PERRL, conjuntiva pink, sclera anicteric Pupils: Present: PERRL - Neck Neck exam general surgery: Present: supple, trachea midline. Absent: lymphadenopathy - Respiratory Respiratory exam: Present: CTAB. Absent: accessory muscle use, rales, rhonchi, wheezes - Cardiovascular Cardiovascular exam: Present: RRR, +S1, +S2. Absent: diastolic murmur, gallop, rubs, systolic murmur - GI/Abdominal GI/Abdominal exam: Present: normal bowel sounds, soft, no peritoneal signs. Absent: distended, tenderness - Extremities Exam Extremities exam: Present: pedal edema, warm, radial pulses palpable and symmetrical. Absent: calf tenderness, cyanotic Additional comments: Bilateral lower extremity edema and contractures. Limited range of motion. - Expanded Lower Extremities Exam Upper Leg exam: Present: swelling. Absent: full ROM Lower Leg exam: Present: swelling. Absent: full ROM - Neurological Exam Neurological exam: Present: CN II-XII intact, oriented X3, no focal deficits. Absent: pronater drift, facial droop, speech deficit - Skin Skin exam: Present: dry, intact Internal Medicine: Result - Labs CBC & Chem 7: 11/18/17 05:52 11/18/17 05:52 Labs: Short CBC 11/18/17 Range/Units 05:52 WBC 8.9 (4.3-11.1) K/mcL Hgb 11.1 L (11.5-15.4) g/dL Hct 35.0 L (35.3-44.9) % Plt Count 368 (140-400) K/mcL Neutrophils # 7.2 (1.6-8.9) K/mcL BMP 11/18/17 05:52 Sodium 142 Potassium 3.1 L Chloride 115 H Carbon Dioxide 21 L BUN 6 Creatinine 0.30 L Glucose 162 H Calcium 8.7 Consult Discharge Plan - Plan Referrals: NONE,PCP [Primary Care Provider] -
[2017-11-18] MEDS ORDERED: Cefepime HCl 1,000 MG in Water for inj. (sterile) 20 ML 10 ML IVP SCH (18:00)
[2017-11-18] MEDS: *HR* HYDROcodone/Acet 5/325 mg TABLET PO PRN (22:36)
[2017-11-18] MEDS: Cefepime HCl 1,000 MG in Water for inj. (sterile) 20 ML 10 ML IVP SCH (22:38)
[2017-11-19] MEDS: 0.9 % Sodium Chloride w KCl 20 MEQ/1,000 ML MLS IVC SCH ×2 (05:24→18:02)
[2017-11-19] MEDS: *HR* Heparin 5,000 UNIT/ML VIAL SQ SCH ×2 (06:29→17:42)
[2017-11-19] MEDS: Levothyroxine 25 MCG TABLET PO SCH (06:30)
[2017-11-19] MEDS: Baclofen 10 MG TABLET PO SCH ×3 (08:57→21:19)
[2017-11-19] MEDS: Hydrocortisone Sodium Succ 100 MG/2 ML VIAL IVP SCH ×2 (08:58→17:43)
[2017-11-19] MEDS: Nystatin Cream 15 GM TUBE TP SCH ×3 (09:16→21:21)
[2017-11-19] MEDS: Cefepime HCl 1,000 MG in Water for inj. (sterile) 20 ML 10 ML IVP SCH ×2 (10:28→21:22)
--- NOTE | 2017-11-19 17:22 | Internal Med Progress Note ---
Date of Encounter: 11/19/17 Time of Encounter: 11:00 - Assessment and plan (1) Adrenal insufficiency Current Visit: Yes Status: Acute Assessment and plan: hx chronic adrenal insufficiency. Apparently was having nausea and vomiting at [facility] and unable to take steroids. She was started on high-dose stress steroids on arrival. IV steroids tapered. Cont home steroids. BP stable (2) UTI (urinary tract infection) Current Visit: No Status: Suspected Assessment and plan: UA indicative of UTI; urine culture with C. freundii; change ATB to cefepime per sensitivity. Qualifiers: Urinary tract infection type: site unspecified Hematuria presence: without hematuria Qualified Code(s): N39.0 - Urinary tract infection, site not specified (3) Hypothyroidism (acquired) Current Visit: Yes Status: Chronic Assessment and plan: per hx. Cont home levothyroxine (4) Physical deconditioning Current Visit: Yes Status: Chronic Assessment and plan: details unclear. Per chart review, patient was admitted 09/2017 and reported being nonambulatory/bedbound for the last 3 months. Was discharged to [facility] in September 2017 and has been there since that time. Unclear etiology of the weakness; reports that she has seen multiple physicians, including neurology without diagnosis. 09/[address] unremarkable. Evaluated by orthopedics during 09/2017 hospitalization who noted bilateral knee flexion contractures and chronic knee pain of unknown etiology. Will look into [facility] records. Continue PT/OT for now. (5) Depression Current Visit: Yes Status: Acute Assessment and plan: suspected. This is likely contributing to physical decline. No SI. Would benefit from outpatient counseling Qualifiers: Depression Type: other depression Qualified Code(s): F32.89 - Other specified depressive episodes (6) DVT prophylaxis Current Visit: Yes Status: Acute Assessment and plan: Heparin subcutaneous every 12 hours. - Subjective Interval history: Seen and examined at bedside; had a long discussion with patient regarding need to be complaint with care. Patient voices understanding and desire to move forward with PT/OT. She complains of bilateral lower leg pain which is chronic - Constitutional Vitals: Temp Pulse Resp BP Pulse Ox 97.3 F L 57 16 115/82 94 11/19/17 15:41 11/19/17 15:41 11/19/17 15:41 11/19/17 15:41 11/19/17 15:41 General appearance: Present: cooperative, A&O X 3, pleasant, no acute distress, answers questions appropriately - Head Head exam: Present: atraumatic, normocephalic - Eye Eye exam: Present: PERRL, conjuntiva pink, sclera anicteric Pupils: Present: PERRL - Neck Neck exam general surgery: Present: supple, trachea midline. Absent: lymphadenopathy - Respiratory Respiratory exam: Present: CTAB. Absent: accessory muscle use, rales, rhonchi, wheezes - Cardiovascular Cardiovascular exam: Present: RRR, +S1, +S2. Absent: diastolic murmur, gallop, rubs, systolic murmur - GI/Abdominal GI/Abdominal exam: Present: normal bowel sounds, soft, no peritoneal signs. Absent: distended, tenderness - Extremities Exam Extremities exam: Present: pedal edema, warm, radial pulses palpable and symmetrical. Absent: calf tenderness, cyanotic Additional comments: Bilateral lower ext contracture - Neurological Exam Neurological exam: Present: CN II-XII intact, oriented X3, no focal deficits. Absent: pronater drift, facial droop, speech deficit - Skin Skin exam: Present: dry, intact Internal Medicine: Result - Labs CBC & Chem 7: 11/18/17 05:52 11/18/17 05:52 Consult Discharge Plan - Plan Referrals: NONE,PCP [Primary Care Provider] -
[2017-11-19] MEDS: *HR* HYDROcodone/Acet 5/325 mg TABLET PO PRN (17:51)
[2017-11-19] MEDS ORDERED: 0.9 % Sodium Chloride 500 ML IVC ONE (20:36)
[2017-11-19] MEDS: Hydrocortisone 10 MG TABLET PO SCH (21:20)
[2017-11-20 05:45] LABS: BUN/Creatinine Ratio 16 (6-26); Blood Urea Nitrogen 4 mg/dL (6-20); Calcium 8.3 mg/dL (8.6-10.3); Carbon Dioxide 27 mEq/L (23-29); Chloride 112 mEq/L (98-107); Glucose 100 mg/dL (70-105); Osmolality,Calculated 293 (280-300); Potassium 4.1 mEq/L (3.5-5.1); Sodium 143 mEq/L (136-145); eGFR For African Americans > 60 (> 60); eGFR For Non-African Americans > 60 (> 60)
[2017-11-20] MEDS: Levothyroxine 25 MCG TABLET PO SCH (06:21)
[2017-11-20] MEDS: *HR* Heparin 5,000 UNIT/ML VIAL SQ SCH ×2 (06:22→17:32)
[2017-11-20] MEDS: Baclofen 10 MG TABLET PO SCH ×3 (09:56→21:16)
[2017-11-20] MEDS: Cefepime HCl 1,000 MG in Water for inj. (sterile) 20 ML 10 ML IVP SCH ×2 (09:57→21:16)
[2017-11-20] MEDS: Hydrocortisone 10 MG TABLET PO SCH ×2 (09:57→21:15)
[2017-11-20] MEDS: Nystatin Cream 15 GM TUBE TP SCH ×3 (09:58→21:18)
[2017-11-20] MEDS: *HR* HYDROcodone/Acet 5/325 mg TABLET PO PRN ×2 (11:48→21:15)
--- NOTE | 2017-11-20 16:33 | Internal Med Progress Note ---
Date of Encounter: 11/20/17 Time of Encounter: 11:30 - Assessment and plan (1) Adrenal insufficiency Current Visit: Yes Status: Acute Assessment and plan: hx chronic adrenal insufficiency. Apparently was having nausea and vomiting at [facility] and unable to take steroids. She was started on high-dose stress steroids on arrival. IV steroids tapered. Cont home steroids. BP stable (2) UTI (urinary tract infection) Current Visit: No Status: Suspected Assessment and plan: UA indicative of UTI; urine culture with C. freundii; change ATB to cefepime per sensitivity. Qualifiers: Urinary tract infection type: site unspecified Hematuria presence: without hematuria Qualified Code(s): N39.0 - Urinary tract infection, site not specified (3) Hypothyroidism (acquired) Current Visit: Yes Status: Chronic Assessment and plan: per hx. Cont home levothyroxine (4) Physical deconditioning Current Visit: Yes Status: Chronic Assessment and plan: details unclear. Per chart review, patient was admitted 09/2017 and reported being nonambulatory/bedbound for the last 3 months. Was discharged to [facility] in September 2017 and has been there since that time. Unclear etiology of the weakness; reports that she has seen multiple physicians, including neurology without diagnosis. 09/[address] unremarkable. Evaluated by orthopedics during 09/2017 hospitalization who noted bilateral knee flexion contractures and chronic knee pain of unknown etiology. [facility] records obtained and patient was seen by orthopedics at [facility] 12/2016 who suspected myalgias secondary to antral [place]'s and thyroid. Evaluated by PT/OT who is recommending return to SNF. (5) Depression Current Visit: Yes Status: Acute Assessment and plan: suspected. This is likely contributing to physical decline. No SI. Would benefit from outpatient counseling Qualifiers: Depression Type: other depression Qualified Code(s): F32.89 - Other specified depressive episodes (6) DVT prophylaxis Current Visit: Yes Status: Acute Assessment and plan: Heparin subcutaneous every 12 hours. - Subjective Interval history: Seen and examined at bedside; no acute changes and assessment to report from yesterday's exam. She feels better and is ready to return to [facility] when she is able. Still with complaints of lower extremity pain and limited range of motion, chronic and stable. - Constitutional Vitals: Temp Pulse Resp BP Pulse Ox 97.5 F L 63 15 111/70 98 11/20/17 12:31 01/25/18 12:31 11/20/17 12:31 11/20/17 12:31 11/20/17 12:31 General appearance: Present: cooperative, A&O X 3, pleasant, no acute distress, answers questions appropriately - Head Head exam: Present: atraumatic, normocephalic - Eye Eye exam: Present: PERRL, conjuntiva pink, sclera anicteric Pupils: Present: PERRL - Neck Neck exam general surgery: Present: supple, trachea midline. Absent: lymphadenopathy - Respiratory Respiratory exam: Present: CTAB. Absent: accessory muscle use, rales, rhonchi, wheezes - Cardiovascular Cardiovascular exam: Present: RRR, +S1, +S2. Absent: diastolic murmur, gallop, rubs, systolic murmur - GI/Abdominal GI/Abdominal exam: Present: normal bowel sounds, soft, no peritoneal signs. Absent: distended, tenderness - Extremities Exam Extremities exam: Present: pedal edema, warm, radial pulses palpable and symmetrical. Absent: calf tenderness, cyanotic Additional comments: bilateral lower extremity edema with bilateral knee contractures - Neurological Exam Neurological exam: Present: CN II-XII intact, oriented X3, no focal deficits. Absent: pronater drift, facial droop, speech deficit - Skin Skin exam: Present: dry, intact Internal Medicine: Result - Labs CBC & Chem 7: 11/18/17 05:52 11/20/17 03:55 Labs: BMP 11/20/17 03:55 Sodium 143 Potassium 4.1 Chloride 112 H Carbon Dioxide 27 BUN 4 L Creatinine 0.25 L Glucose 100 Calcium 8.3 L Consult Discharge Plan - Plan Referrals: NONE,PCP [Primary Care Provider] -
[2017-11-21] MEDS: Levothyroxine 25 MCG TABLET PO SCH (06:10)
[2017-11-21] MEDS: *HR* Heparin 5,000 UNIT/ML VIAL SQ SCH ×2 (06:11→16:47)
[2017-11-21] MEDS: Hydrocortisone 10 MG TABLET PO SCH ×3 (07:57→20:53)
[2017-11-21] MEDS: Baclofen 10 MG TABLET PO SCH ×3 (07:58→14:17)
[2017-11-21] MEDS: Nystatin Cream 15 GM TUBE TP SCH ×4 (07:59→20:54)
[2017-11-21] MEDS: Cefepime HCl 1,000 MG in Water for inj. (sterile) 20 ML 10 ML IVP SCH ×2 (10:40→21:04)
[2017-11-21] MEDS: *HR* HYDROcodone/Acet 5/325 mg TABLET PO PRN (15:35)
--- NOTE | 2017-11-21 17:21 | Internal Med Progress Note ---
Date of Encounter: 11/21/17 Time of Encounter: 17:17 - Assessment and plan (1) Adrenal insufficiency Current Visit: Yes Status: Acute Assessment and plan: hx chronic adrenal insufficiency. Apparently was having nausea and vomiting at [facility] and unable to take steroids. She was started on high-dose stress steroids on arrival. IV steroids tapered. Cont home steroids. BP stable (2) UTI (urinary tract infection) Current Visit: No Status: Suspected Assessment and plan: UA indicative of UTI; urine culture with C. freundii; change ATB to cefepime per sensitivity. Qualifiers: Urinary tract infection type: site unspecified Hematuria presence: without hematuria Qualified Code(s): N39.0 - Urinary tract infection, site not specified (3) Hypothyroidism (acquired) Current Visit: Yes Status: Chronic Assessment and plan: per hx. Cont home levothyroxine (4) Physical deconditioning Current Visit: Yes Status: Chronic Assessment and plan: details unclear. Per chart review, patient was admitted 09/2017 and reported being nonambulatory/bedbound for the last 3 months. Was discharged to [facility] in September 2017 and has been there since that time. Unclear etiology of the weakness; reports that she has seen multiple physicians, including neurology without diagnosis. 09/[address] unremarkable. Evaluated by orthopedics during 09/2017 hospitalization who noted bilateral knee flexion contractures and chronic knee pain of unknown etiology. [facility] records obtained and patient was seen by orthopedics at [facility] 12/2016 who suspected myalgias secondary to antral [place]'s and thyroid. Evaluated by PT/OT who is recommending return to SNF. (5) Depression Current Visit: Yes Status: Acute Assessment and plan: suspected. This is likely contributing to physical decline. No SI. Would benefit from outpatient counseling Qualifiers: Depression Type: other depression Qualified Code(s): F32.89 - Other specified depressive episodes (6) DVT prophylaxis Current Visit: Yes Status: Acute Assessment and plan: Heparin subcutaneous every 12 hours. - Subjective Interval history: Seen and examined at bedside; no acute changes. Says she is working with therapy and she is aware of plan return back to SNF. - Constitutional Vitals: Temp Pulse Resp BP Pulse Ox 98.4 F 74 16 103/69 95 11/21/17 14:47 11/21/17 14:47 11/21/17 14:47 11/21/17 14:47 11/21/17 14:47 General appearance: Present: cooperative, A&O X 3, pleasant, no acute distress, answers questions appropriately - Head Head exam: Present: atraumatic, normocephalic - Eye Eye exam: Present: PERRL, conjuntiva pink, sclera anicteric Pupils: Present: PERRL - Neck Neck exam general surgery: Present: supple, trachea midline. Absent: lymphadenopathy - Respiratory Respiratory exam: Present: CTAB. Absent: accessory muscle use, rales, rhonchi, wheezes - Cardiovascular Cardiovascular exam: Present: RRR, +S1, +S2. Absent: diastolic murmur, gallop, rubs, systolic murmur - GI/Abdominal GI/Abdominal exam: Present: normal bowel sounds, soft, no peritoneal signs. Absent: distended, tenderness - Extremities Exam Extremities exam: Present: pedal edema, warm, radial pulses palpable and symmetrical. Absent: calf tenderness, cyanotic Additional comments: Bilateral lower extremity edema and limited range of motion - Neurological Exam Neurological exam: Present: CN II-XII intact, oriented X3, no focal deficits. Absent: pronater drift, facial droop, speech deficit - Skin Skin exam: Present: dry, intact Internal Medicine: Result - Labs CBC & Chem 7: 11/18/17 05:52 11/20/17 03:55 Consult Discharge Plan - Plan Referrals: NONE,PCP [Primary Care Provider] -
[2017-11-21] MEDS ORDERED: 0.9 % Sodium Chloride 500 ML IVC ONE (20:52)
[2017-11-21] MEDS ORDERED: 0.9 % Sodium Chloride 500 ML ONE (20:58)
[2017-11-21] MEDS ORDERED: 0.9 % Sodium Chloride 1,000 ML IVC ONE (22:37)
[2017-11-21] MEDS ORDERED: Ketorolac 30 MG/ML VIAL IVP ONE (23:16)
[2017-11-22] MEDS: Baclofen 10 MG TABLET PO SCH ×3 (01:24→15:28)
[2017-11-22 04:44] LABS: BUN/Creatinine Ratio 30 (6-26); Blood Urea Nitrogen 12 mg/dL (6-20); Calcium 8.3 mg/dL (8.6-10.3); Carbon Dioxide 27 mEq/L (23-29); Chloride 109 mEq/L (98-107); Glucose 116 mg/dL (70-105); Osmolality,Calculated 287 (280-300); Potassium 4.1 mEq/L (3.5-5.1); Sodium 138 mEq/L (136-145); eGFR For African Americans > 60 (> 60); eGFR For Non-African Americans > 60 (> 60)
[2017-11-22] MEDS: Levothyroxine 25 MCG TABLET PO SCH (06:18)
[2017-11-22] MEDS: *HR* Heparin 5,000 UNIT/ML VIAL SQ SCH (06:19)
[2017-11-22] MEDS: Nystatin Cream 15 GM TUBE TP SCH ×2 (09:56→15:29)
[2017-11-22] MEDS: Cefepime HCl 1,000 MG in Water for inj. (sterile) 20 ML 10 ML IVP SCH (09:56)
[2017-11-22] MEDS: Hydrocortisone 10 MG TABLET PO SCH (09:56)
[2017-11-22 12:08] VITALS: BP 95/63
--- NOTE | 2017-11-22 14:18 | Discharge Summary ---
Date of Encounter: 11/22/17 Time of Encounter: 15:16 - Discharge Diagnosis (1) Adrenal insufficiency Priority: Primary Status: Chronic Comments: hx chronic adrenal insufficiency. Apparently was having nausea and vomiting at [facility] and unable to take steroids. She was started on high-dose stress steroids on arrival. IV steroids tapered. BP variable but overall acceptable; of note, patient has intermittently refused home steroids resulting in hypotension. Strongly encouraged medication compliance. Cont home steroids. BP can be monitored at [facility] (2) UTI (urinary tract infection) Priority: Primary Status: Acute Comments: UA indicative of UTI; urine culture with C. freundii; received 4 doses IV cefepime. Change ATB at discharge to Levaquin. To complete a total course of 7 days. Qualifiers: Urinary tract infection type: site unspecified Hematuria presence: without hematuria Qualified Code(s): N39.0 - Urinary tract infection, site not specified (3) Physical deconditioning Priority: Secondary Status: Chronic Comments: details unclear. Per chart review, patient was admitted 09/2017 and reported being nonambulatory/bedbound for the last 3 months. Was discharged to [facility] in September 2017 and has been there since that time. Unclear etiology of the weakness; reports that she has seen multiple physicians, including neurology without diagnosis. 09/[address] unremarkable. Evaluated by orthopedics during 09/2017 hospitalization who noted bilateral knee flexion contractures and chronic knee pain of unknown etiology. 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 Evaluated by PT/OT who is recommending return to SNF. She may benefit from a neuromuscular consultation with muscle biopsy at tertiary [facility]. Recommend following up with [facility] (4) Depression Priority: Primary Status: Acute Comments: suspected. This is likely contributing to physical decline, failure to thrive. No SI. Would benefit from outpatient counseling Qualifiers: Depression Type: other depression Qualified Code(s): F32.89 - Other specified depressive episodes (5) Hypothyroidism (acquired) Priority: Secondary Status: Chronic Comments: per hx. TSH 1.3. Cont home levothyroxine - Discharge Medications Prescriptions: HYDROcodone/Acet 5/325 mg [[place] 5-325 mg] 1 tab PO Q6HR PRN #28 tablet PRN Reason: Pain Gabapentin [Neurontin] 300 mg PO TID #21 capsule Levofloxacin [Levaquin] 500 mg PO DAILY #4 tablet Home Medications: Baclofen [Lioresal] 5 mg PO TID 11/17/17 [History] Fludrocortisone Acetate [Florinef] 0.1 mg PO DAILY 11/17/17 [History] Hydrocortisone [Cortef] 10 mg PO BID 11/17/17 [History] Levothyroxine [Synthroid] 25 mcg PO DAILY 11/17/17 [History] Gabapentin [Neurontin] 300 mg PO TID #21 capsule 11/22/17 [Rx] HYDROcodone/Acet 5/325 mg [[place] 5-325 mg] 1 tab PO Q6HR PRN #28 tablet [Rx] Levofloxacin [Levaquin] 500 mg PO DAILY #4 tablet 11/22/17 [Rx] Allergies/Adverse Reactions: 3 Allergy/AdvReac Type Severity Reaction Status Date / Time morphine AdvReac Rash Verified 09/30/17 17:53 Date of admission: 11/16/17 11:32 Primary care physician: PCP NONE Discharging clinician: Zaina Kendrick Anticipated date of discharge: 11/22/17 - Patient Status Disposition: Transfer SNF Condition: Fair Functional capacity at discharge: bed bound Overall status at discharge: patient is back to baseline - Discharge Instructions Follow Up With: NONE,PCP [Primary Care Provider] - Additional Instructions: Recommend evaluation and treatment per facility psychiatrist Recommend following up with [facility] at [place] Dr. Aguilera for further evaluation and treatment of myalgias, lower extremity contractures and immobility - Diet and Activity Activity: as per physical therapy Diet: advance to your usual diet Interval History: Seen and examined at bedside. Says she had an uneventful night. Says she would prefer to go to inpatient rehab but she is agreeable to return to SNF. Still c/ o biateral lower ext pain but unchanged. No SOB, no CP. Hospital course: See assessment and plan for hospital course - Time Spent with Patient Total time spent providing and/or coordinating discharge services: - Constitutional Vitals: Temp Pulse Resp BP Pulse Ox 98.2 F 72 16 95/63 96 11/22/17 12:07 11/22/17 12:07 11/22/17 12:07 11/22/17 12:07 11/22/17 12:07 General appearance: Present: cooperative, A&O X 3, pleasant, no acute distress, answers questions appropriately - Head Head exam: Present: atraumatic, normocephalic - Eye Eye exam: Present: PERRL, conjuntiva pink, sclera anicteric Pupils: Present: PERRL - Neck Neck exam general surgery: Present: supple, trachea midline. Absent: lymphadenopathy - Respiratory Respiratory exam: Present: CTAB. Absent: accessory muscle use, rales, rhonchi, wheezes - Cardiovascular Cardiovascular exam: Present: RRR, +S1, +S2. Absent: diastolic murmur, gallop, rubs, systolic murmur - GI/Abdominal GI/Abdominal exam: Present: normal bowel sounds, soft, no peritoneal signs. Absent: distended, tenderness - Extremities Exam Extremities exam: Present: pedal edema, warm, radial pulses palpable and symmetrical. Absent: calf tenderness, cyanotic Additional comments: lower extremity contracture - Neurological Exam Neurological exam: Present: CN II-XII intact, oriented X3, no focal deficits. Absent: pronater drift, facial droop, speech deficit - Skin Skin exam: Present: dry, intact
--- NOTE | 2017-11-22 15:29 | Physician Discharge Referral ---
[facility]Care Referral Info Transfer To: [facility] Provider in Charge: Zaina Kendrick CNP Provider in Charge after Transfer: PCP Institutional Level of Care: Skilled - Diagnosis (1) Adrenal insufficiency Status: Chronic (2) UTI (urinary tract infection) Status: Acute (3) Physical deconditioning Status: Chronic (4) Depression Status: Acute (5) Hypothyroidism (acquired) Status: Chronic - Transfer Medications Prescriptions: HYDROcodone/Acet 5/325 mg [[place] 5-325 mg] 1 tab PO Q6HR PRN #28 tablet PRN Reason: Pain Gabapentin [Neurontin] 300 mg PO TID #21 capsule Levofloxacin [Levaquin] 500 mg PO DAILY #4 tablet Home Medications: Baclofen [Lioresal] 5 mg PO TID 11/17/17 [History] Fludrocortisone Acetate [Florinef] 0.1 mg PO DAILY 11/17/17 [History] Hydrocortisone [Cortef] 10 mg PO BID 11/17/17 [History] Levothyroxine [Synthroid] 25 mcg PO DAILY 11/17/17 [History] Gabapentin [Neurontin] 300 mg PO TID #21 capsule 11/22/17 [Rx] HYDROcodone/Acet 5/325 mg [[place] 5-325 mg] 1 tab PO Q6HR PRN #28 tablet [Rx] Levofloxacin [Levaquin] 500 mg PO DAILY #4 tablet 11/22/17 [Rx] Allergies/Adverse Reactions: 3 Allergy/AdvReac Type Severity Reaction Status Date / Time morphine AdvReac Rash Verified 09/30/17 17:53 - Respiratory Orders None Smoking Cessation: Smoking cessation has been advised. For more information, call the [place] Tobacco Quit Line at 7-768-LVWR-NOW. - Advance Directives Code Status: Full Code - Mobility Orders Bedrest - Rehabiliation Orders Rehab Potential: Fair Rehab Orders: Evaluation for Physical Therapy, Evaluation for Occupational Therapy - Diet Orders Regular CERTIFICATION: I certify that the transfer of the above named patient to an Extended Care Facility is necessary for the continuing treatment of the diagnosis listed. The above information is true and accurate reflection of patient's current condition. Confidential - Redisclosure prohibited without a patient's written consent.
== END 2017-11-22 16:50 | DRG 690 ==
LOC: EMEROO 14:37 → 3BNU 14:37
PROVIDERS: ADMIT Hospitalist; ATTEND Registered Nurse